=== PATIENT | female | born 1990 | race Caucasian/White ===

== ENCOUNTER 2021-06-15 05:54 | Emergency (ER) | payer BC, SELFPAY ==
[2021-06-15] VITALS (12 sets, daily range): BP systolic 105–130; BP diastolic 74–90; PULSE 73–95; RESP 11–19; TEMP 36.3; O2SAT 98–100
[2021-06-15 06:32] LABS: Basophils Percent Auto 0.3 % (0.2-1.2); Eosinophils Absolute Auto 0.1 K/mm3 (0-0.3); Eosinophils Percent Auto 0.6 % (0-4.4); Hematocrit 41.8 % (37.0-47.0); Hemoglobin 14.2 g/dL (12.0-15.0); Immature Granulocyte Absolute 0.03 K/mm3 (0.00-0.031); Immature Granulocyte Percent A 0.3 % (0-0.5); Lymphocytes Absolute Auto 0.59 K/mm3 (0.9-3.2); Lymphocytes Percent Auto 5.7 % (18.3-44.2); Mean Corpuscular Hemoglobin 30.2 pg (26-34); Mean Corpuscular Volume 88.9 fl (80-100); Mean Platelet Volume 9.7 fl (7.4-10.4); Monocytes Absolute Auto 0.4 K/mm3 (0.1-0.6); Monocytes Percent Auto 3.9 % (2.6-8.5); Neutrophils Absolute Auto 9.3 K/mm3 (1.3-6.7); Neutrophils Percent Auto 89.2 % (45.5-73.1); Platelet Count Result 317 k/mm3 (150-375); Red Cell Distribution Width 12.4 % (11.5-14.5); White Blood Count 10.4 K/mm3 (4.5-10.0)
[2021-06-15 06:41] LABS: Alanine Aminotransferase 41 U/L (4-35); Albumin Level 5.3 g/dL (3.5-5.1); Alkaline Phosphatase 122 U/L (38-126); Anion Gap 13 mmol/L (8-16); Aspartate Amino Transferase 57 U/L (14-36); Bilirubin,Total 0.7 mg/dL (0.2-1.3); Blood Urea Nitrogen 12 mg/dL (7-17); Calcium 9.8 mg/dL (8.4-10.2); Carbon Dioxide 24 mmol/L (22-30); Chloride 103 mmol/L (98-107); Estimated CRCL calculation 119 ml/min; Estimated Glomerular Filt Rate > 60; Glucose 108 mg/dL (65-110); Lipase 137 U/L (23-300); Sodium 140 mmol/L (137-145)
[2021-06-15 06:46] LABS: Add Urine Microscopic? YES; Appearance Urine Clear (Clear); Bacteria Urine Trace /hpf; Bilirubin Urine Negative (Negative); Blood Urine Negative (Negative); Color Urine Yellow (Yellow); Glucose Urine UA Negative (Negative); Ketones Urine 2+ mg/dL (Negative); Leukocyte Esterase Ur Negative LEU/UL (Negative); Mucus Urine Rare /lpf; Nitrate Urine Negative (Negative); Protein Urine 1+ mg/dL (Negative); RBC Urine 0-2 /hpf (0-2); Specific Grav Ur 1.021 (1.001-1.035); Squamous Epithelial Cell Urine Many /hpf (Few); Urobilinogen Urine Negative mg/dL (<2.0); WBC Urine 0-3 /hpf
--- NOTE | 2021-06-15 06:50 | ED.GENADULT ---
HPI - General Adult General Chief complaint: Nausea/Vomiting/Diarrhea <Tyler Samuels MD - Last Filed: 06/15/21 06:52> Stated complaint: n/v <Tyler Samuels MD - Last Filed: 06/15/21 06:52> Time Seen by Provider: 06/15/21 07:24 <Tyler Samuels MD - Last Filed: 06/15/21 06:52> History of Present Illness HPI narrative: Patient 30-year-old female who presents the emergency department with chief complaint of nausea vomiting and diarrhea. Patient reports that her daughter was sick with a stomach flu and has had multiple bouts of nausea vomiting and diarrhea. The patient reports been unable to keep fluids down states she feels extremely lightheaded and reports that she feels dehydrated. Patient states she has a little bit of a cramping-like sensation in her abdomen but denies localizing pain. <Tyler Samuels MD - Last Filed: 06/15/21 06:52> Related Data Home medications: Home Medications Medication Instructions Recorded Confirmed PNV cmb#95-ferrous fumarate-FA 1 tablet PO DAILY 05/23/19 06/18/19 [] ferrous sulfate 140 mg PO ONCE 05/23/19 06/18/19 <Tyler Samuels MD - Last Filed: 06/15/21 06:52> Allergies/adverse reactions: Allergies Allergy/AdvReac Type Severity Reaction Status Date / Time No Known Allergies Allergy Verified 05/23/19 12:40 <Tyler Samuels MD - Last Filed: 06/15/21 06:52> Review of Systems Review of Systems: A 10 system review of systems was completed on the patient and is negative except for what is stated in the HPI. Nursing and ancillary documentation was reviewed. <Tyler Samuels MD - Last Filed: 06/15/21 06:52> PMFSH Past Medical History Medical History: Medical History Anemia <Tyler Samuels MD - Last Filed: 06/15/21 06:52> Family History Family History: Family History Grandparent Heart disease Diabetes mellitus Hypertension Mother Melanoma Hypertension Father Hypertension <Tyler Samuels MD - Last Filed: 06/15/21 06:52> Social History Social History: Social History Smoking status: Never smoker Substance use: never Spiritual care concerns: No <Tyler Samuels MD - Last Filed: 06/15/21 06:52> Exam Narrative: GENERAL: Well-appearing, well-nourished, and in no acute distress. HEAD: Normocephalic, atraumatic. EYES: PERRLA and EOMI. ENT: Nares clear, no rhinorrhea or epistaxis. Mucous membranes moist. NECK: Supple. CHEST: Clear to auscultation. No respiratory distress. HEART: Regular rate and rhythm. No murmur heard. Normal peripheral pulses. ABDOMEN: Soft, nontender, nondistended, normal active bowel sounds. EXTREMITIES: Normal range of motion. No edema. SKIN: Warm, dry, no rash. NEURO: No focal deficits. Alert and oriented x3. PSYCH: Normal mood and affect. <Tyler Samuels MD - Last Filed: 06/15/21 06:52> Course Vital Signs Vital signs: Vital Signs Temperature 36.3 C L 06/15/21 06:00 Pulse Rate 73 06/15/21 06:00 Respiratory Rate 18 06/15/21 06:00 Blood Pressure 130/82 06/15/21 06:00 Pulse Oximetry 98 06/15/21 06:00 Temperature 36.3 C L 06/15/21 06:00 Pulse Rate 89 06/15/21 07:27 Respiratory Rate 19 06/15/21 07:02 Blood Pressure 107/85 06/15/21 07:27 Pulse Oximetry 100 06/15/21 07:02 <Tyler Samuels MD - Last Filed: 06/15/21 06:52> Vital Signs Temperature 36.3 C L 06/15/21 06:00 Pulse Rate 73 06/15/21 06:00 Respiratory Rate 18 06/15/21 06:00 Blood Pressure 130/82 06/15/21 06:00 Pulse Oximetry 98 06/15/21 06:00 Temperature 36.3 C L 06/15/21 06:00 Pulse Rate 89 06/15/21 07:27 Respiratory Rate 19 06/15/21 07:0
[2021-06-15] MEDS: SODIUM CHLORIDE 0.9% IV 1,000 ML 999 ML IV CONT (06:53)
[2021-06-15] MEDS: ONDANSETRON INJ 4 MG/2 ML VIAL IV PUSH (06:53)
[2021-06-15] MEDS: DICYCLOMINE HCL INJ 20 MG/2 ML VIAL IM (06:53)
--- NOTE | 2021-06-15 07:22 | PC.NURSE ---
Assumed care of pt. at this time. Report from PORFIRIO Colón
== END 2021-06-15 08:10 | disposition home or self-care (01) ==
PROVIDERS: Emergency Medicine; Emergency Provider Emergency Medicine
DX: K52.9 Noninfective gastroenteritis and colitis, unspecified (principal); Z86.2 Personal history of diseases of the blood and blood-forming organs and certain disorders involving the immune mechanism
CPT/HCPCS: 36415; 80053; 81001; 81025; 83690; 85025; 96361; 96372; 96374; 99284; J0500; J2405; J7030

== ENCOUNTER 2022-07-22 10:20 | Emergency (ER) | payer OTHER, SELFPAY ==
--- NOTE | ~2022-07-22 | XR_ITS ---
XR ankle RT min 3V, XR foot RT min 3V 07/22/2022 10:51 (accession [id number]), 07/22/2022 10:52 (accession [id number]) Indication: Right ankle and foot pain after twisting injury Procedure: 4 views right ankle 4 views right foot Comparison: No prior studies for comparison. Findings: Ankle mortise is intact. There is a transverse nondisplaced fracture proximal aspect of the fifth metatarsal. Mild talonavicular osteoarthritis. Ankle mortise intact. Talar dome is normal. Impression: 1: Nondisplaced transverse fracture proximal aspect of the fifth metatarsal. Reviewed, dictated and finalized at location A. MAKER Impression: 1: Nondisplaced transverse fracture proximal aspect of the fifth metatarsal. Impression: 1: Nondisplaced transverse fracture proximal aspect of the fifth metatarsal.
--- NOTE | 2022-07-22 10:21 | ED.LOWEXIN ---
HPI - Extremity Injury (Lower) General Stated Complaint: rt foot inury Time Seen by Provider: 07/22/22 10:21 Source: patient Mode of arrival: ambulatory Limitations: no limitations History of Present Illness HPI Narrative: Janet is a 31-year-old female patient presenting to the clinic today with complaints of right foot/ankle injury. She reports that she twisted her right ankle/foot last night when leaving a friend's house. She has pain over the lateral dorsal proximal foot and the lateral ankle with mild swelling. Is having severe pain with ambulation Related Data Home Medications Medication Instructions Recorded Confirmed No Home Medications 07/22/22 07/22/22 Allergies Allergy/AdvReac Type Severity Reaction Status Date / Time No Known Allergies Allergy Verified 07/22/22 10:41 Review of Systems Review of Systems: Pertinent positives per HPI. Patient denies any fever, chills, rash, headache, visual changes, dizziness, cough, runny nose, sore throat, shortness of breath, chest pain, palpitations, nausea, vomiting, diarrhea, constipation, abdominal pain, or any urinary issues. PMFSH Past Medical History Medical History Anemia Family History Family History Grandparent Heart disease Diabetes mellitus Hypertension Mother Melanoma Hypertension Father Hypertension Social History Social History Smoking status: Never smoker Substance use: never Spiritual care concerns: No Comments At the time of my signature, I reviewed and agree with the nursing past medical, surgical, social, and family history. There is no relevant family history pertinent to the patient complaint. Exam Narrative: General: Well-developed, well nourished, in no apparent distress Head: Normocephalic, atraumatic. Cardio: Regular rate and rhythm, s1 and s2 normal, no murmur appreciated. Resp: Clear to auscultation bilaterally, no rhonchi, rales, wheezing or rubs. Musculoskeletal: No deformity, mild swelling noted over the lateral dorsal proximal foot and the lateral ankle-tender to palpation over the base of the 5th metatarsal and lateral ankle, mild pain with valgus varus testing of the right ankle, limited range of motion of the 5th metatarsal and the ankle due to pain, pain with dorsal flexion against resistance, muscle strength strong and equal, peripheral pulse strong, no cyanosis, normal gait and station Course Course Emergency Course: Portions of this record may have been created with voice recognition software. Level of Care: Express Care Visit Vital Signs Vital signs: Vital signs reviewed MDM - Extremity Injury (Lower) MDM Narrative Medical decision making narrative: At the time of visit patient is resting comfortably on the exam table. X-ray was performed of the right foot/ankle. X-ray shows a right 5th metatarsal transverse nondisplaced fracture. X-ray of the ankle is normal. Postop shoe, ice pack,and crutches were given to the patient. Supportive measures were discussed with the patient she voiced understanding discharge instructions and agrees to treatment plan. Referral was given to the see Dr. Loera Differential Diagnosis Differential diagnosis: Likely ankle sprain and strain, ankle fracture and other (Foot sprain, foot fracture) Imaging Data Radiologist's impression: [place] [address] XRay Report Signed Patient: Candie Liz : 1990 MR#: [id number] Age/Sex: 31 / F Acct:[id number] Loc: [facility]? ? ADM Date: 07/22/22Attending Dr: Ordering Physician: Aime Moses APRN Date of Service: 07/22/22 Procedure(s): XR ankle RT min 3V; XR foot RT min 3V Accession Number(s): [id number]; [id number] cc
[2022-07-22 10:37] VITALS: BP 116/73; PULSE 66; RESP 18; TEMP 36.6; O2SAT 99
== END 2022-07-22 11:30 | disposition home or self-care (01) ==
PROVIDERS: Emergency Provider Nurse Practitioner Family
DX: S93.411A Sprain of calcaneofibular ligament of right ankle, initial encounter (principal); S93.601A Unspecified sprain of right foot, initial encounter; S92.354A Nondisplaced fracture of fifth metatarsal bone, right foot, initial encounter for closed fracture; X50.9XXA Other and unspecified overexertion or strenuous movements or postures, initial encounter
CPT/HCPCS: 73610; 73630; 99213; G0463

== ENCOUNTER 2023-03-08 15:16 | Outpatient (CLI) | payer OTHER, SELFPAY ==
--- NOTE | ~2023-03-08 | US_ITS ---
EXAMINATION: US breast LT limited HISTORY: Palpable lump in the upper outer quadrant/axilla on the left TECHNIQUE: Limited left breast/axillary ultrasound is performed in the area of clinical concern. FINDINGS: There is a 5 mm x 3 mm oval, circumscribed, parallel, hypoechoic mass with internal vascula rity in the region of the left axilla corresponding to the palpable abnormality of concern. IMPRESSION: Indeterminate mass corresponding to the palpable abnormality of concern. Recommend diagnostic mammogr am to evaluate for any identifiable etiology in the breast. BI-RADS Category 0: Incomplete: Needs additional imaging evaluation. Reviewed, dictated and finalized at location A. IMPRESSION: Indeterminate mass corresponding to the palpable abnormality of concern. Recomm end diagnostic mammogram to evaluate for any identifiable etiology in the breas t. BI-RADS Category 0: Incomplete: Needs additional imaging evaluation.
== END 2023-03-08 15:17 | disposition home or self-care (01) ==
PROVIDERS: Visit Provider Obstetrics & Gynecology
DX: N63.20 Unspecified lump in the left breast, unspecified quadrant (principal)
CPT/HCPCS: 76642

== ENCOUNTER 2023-03-18 08:01 | Emergency (ER) | payer OTHER, SELFPAY ==
[2023-03-18 08:11] VITALS: BP 126/65; PULSE 76; RESP 16; TEMP 36.2; O2SAT 100
--- NOTE | 2023-03-18 08:12 | ED.URI ---
HPI - URI/Sore Throat General Chief Complaint: Upper Respiratory Infection Stated Complaint: sorethroat Time Seen by Provider: 03/18/23 08:16 Source: patient, RN notes reviewed and old records reviewed Mode of arrival: ambulatory Limitations: no limitations History of Present Illness HPI Narrative: 32year old female who presents to [facility] care with complaints of sore throat,cough, and some ear pressure, and hoarseness for the past 3 days. Patient reports that she had 101F fever yesterday and checked her temperature this morning with reading 99.1F. Patient reports that she has taken Ibuprofen and also cough drops for her symptoms. Patient reports that she has had no known ill contacts. MD elicited complaint: sore throat Onset (ago): day(s) (3) Severity: moderate Able to tolerate fluids by mouth: Yes Exacerbating factors: swallowing Associated symptoms: fever, sore throat, cough, ear pain (pressure) and other (hoarseness) Treatments prior to arrival: ibuprofen and other (cough drops) Related Data Allergies Allergy/AdvReac Type Severity Reaction Status Date / Time No Known Allergies Allergy Verified 03/18/23 08:13 Review of Systems Review of Systems: CONSTITUTIONAL: Reports malaise, chills, sweats, or fever. EYES: Denies visual changes, redness, or discharge. ENT: Reports mild rhinorrhea, congestion,no sinus pain, some otalgia, positive for sore throat. CARDIOVASCULAR: Denies chest pain, palpitations, or edema. RESPIRATORY: Reports cough.? Denies dyspnea. GASTROINTESTINAL: Denies abdominal pain, nausea, vomiting, diarrhea SKIN: Denies rash or itching. MUSCULOSKELETAL: Denies myalgia. NEUROLOGIC: Denies headache. All systems reviewed & are unremarkable except as noted in HPI and below PMFSH Past Medical History Medical History Anemia Foot fracture, right Surgical History Surgical History H/O: Family History Family History Grandparent Heart disease Diabetes mellitus Hypertension Mother Melanoma Hypertension Father Hypertension Social History Social History Smoking status: Never smoker Substance use: never Lack of Transportation: No Lack of Food: Never True Current Housing: I Have Housing Concerned About Future Housing: No Difficulty Paying Gas/Electric Bills: No Difficulty Paying for Meds: No Education: Associate Degree Difficulty w/ Childcare or Family Care: No Spiritual care concerns: No Comments At time of signature, agree with nursing past medical, surgical, social and family history. There is no relevant family history pertinent to the presenting complaint Exam Narrative: GENERAL: Well-appearing, well-nourished, and in no acute distress. HEAD: Normocephalic EYES: PERRLA, conjunctivae clear ENT: Nares clear, turbinates edematous and erythematous, clear discharge. Mucous membranes moist. TM pearly kebede with dull light reflex bilaterally; no tragal tenderness. Oropharynx erythematous without lesions. Tonsils red and enlarged and without exudate, no drooling, positive for hoarseness, no trismus, uvula midline. NECK: Supple. Left lymphadenopathy CHEST: Clear to auscultation, breath sounds equal. No wheezing, rhonchi, rales, or stridor. No respiratory distress, speaks in full sentences.occasional cough,SAO2 100% on room air HEART: Regular rate and rhythm. No murmur heard. SKIN: Warm, dry, no rash. NEURO: Alert and oriented x3. PSYCH: Normal mood and affect Course Course Emergency Course: Patient is aware of diagnosis, understands and agrees to treatment plan.? Anticipatory guidance given.? Patient agrees to follow-up as directed and is aware of reasons to seek care at the emergency department. Portions of t
== END 2023-03-18 08:34 | disposition home or self-care (01) ==
PROVIDERS: Emergency Provider Registered Nurse
DX: J02.0 Streptococcal pharyngitis (principal)
CPT/HCPCS: 87880; 99213; G0463

== ENCOUNTER 2023-04-05 12:10 | Outpatient (CLI) | payer OTHER, SELFPAY ==
--- NOTE | ~2023-04-05 | MM_ITS ---
EXAMINATION: MM diagnostic oscar BI w shola HISTORY: Palpable lump of the left axilla. TECHNIQUE: Craniocaudal, mediolateral, and mediolateral oblique 3-D tomosynthesis images of the breas ts were performed and synthetic 2-D images were generated. CAD analysis was submitted and interpreted . COMPARISON: None, baseline BREAST PARENCHYMAL COMPOSITION: The breasts are heterogeneously dense, which may obscure small masses . FINDINGS: No suspicious mass, calcification, or architectural distortion are identified in either jo ast to suggest malignancy. No mammographic etiology is identified for the palpable left axillary lump . IMPRESSION: 1. No mammographic cor etiology identified for the patient's palpable left axillary lump. Ultrasound- guided biopsy of the palpable lump is recommended. 2. Recommend routine screening mammography beginning at age 40. BI-RADS Category 1: Negative Reviewed, dictated and finalized at location A. [employer]ICE MA[employer]GER IMPRESSION: 1. No mammographic cor etiology identified for the patient's palpable left axil more lump. Ultrasound-guided biopsy of the palpable lump is recommended. 2. Recommend routine screening mammography beginning at age 40. BI-RADS Category 1: Negative
== END 2023-04-05 12:11 | disposition home or self-care (01) ==
PROVIDERS: PCP Obstetrics & Gynecology; Referring Provider Obstetrics & Gynecology; Visit Provider Obstetrics & Gynecology
DX: N63.20 Unspecified lump in the left breast, unspecified quadrant (principal)
CPT/HCPCS: 77062; 77066; G0279

== ENCOUNTER → 2023-05-02 09:44 | Outpatient (REF) | payer OTHER, SELFPAY | LOC: ANHLAB 09:44 | PROVIDERS: PCP Obstetrics & Gynecology; Visit Provider Surgery | DX: N63.20 Unspecified lump in the left breast, unspecified quadrant (principal) | CPT/HCPCS: 88305 ==

== ENCOUNTER 2024-05-07 11:45 | Emergency (ER) | payer OTHER, SELFPAY ==
[2024-05-07 11:46] VITALS: BP 129/92; PULSE 91; RESP 20; TEMP 36.4; O2SAT 100
[2024-05-07 12:23] VITALS: BP 123/80
[2024-05-07 12:36] VITALS: BP 134/81; BP 137/81; PULSE 68; PULSE 93; RESP 15; RESP 16; TEMP 36.4; O2SAT 100
--- NOTE | 2024-05-07 12:59 | ED_ITS ---
HPI - General Adult General Chief complaint: Dizziness Stated complaint: HTN Time Seen by Provider: 05/07/24 12:41 History of Present Illness HPI narrative: 33-year-old female present to the emergency department for evaluation for elevated blood pressure. Patient is approximately 26 weeks and patient follows up with Dr. Galvez. Patient states that she had some increased fatigue and her eyes felt sore today so she checked her blood pressure at work and was found to have a blood pressure of 150 systolic. Upon arrival emergency department patient's blood pressure was 129/92. Patient states her symptoms have improved. Patient states she has had some intermittent right-sided abdominal cramping but denies any feeling of contractions, vaginal bleeding or vaginal discharge. Patient reports that her typical blood pressure is in the 120 range. Related Data Home Medications Medication Instructions Recorded Confirmed No Home Medications 05/09/23 05/09/23 Allergies Allergy/AdvReac Type Severity Reaction Status Date / Time No Known Allergies Allergy Verified 05/09/23 08:17 Review of Systems Review of Systems: All systems reviewed & are unremarkable except as noted in HPI and below PMFSH Past Medical History Medical History Anemia Foot fracture, right Surgical History Surgical History H/O: Family History Family History (Updated 05/02/23 @ 08:33 by Marisol Espinosa CMA) Grandparent Heart disease Diabetes mellitus Hypertension Depression Mother Melanoma Hypertension Father Hypertension Alcoholism Depression Heart disease Social History Social History (Updated 05/02/23 @ 08:40 by Marisol Espinosa CMA) Smoking status: Former smoker Alcohol intake: current Substance use: never Substance use type: does not use Lack of Transportation: No Lack of Food: Never True Current Housing: I Have Housing Concerned About Future Housing: No Difficulty Paying Gas/Electric Bills: No Difficulty Paying for Meds: No Education: Associate Degree Difficulty w/ Childcare or Family Care: No Spiritual care concerns: No Exam Narrative: APPEARANCE: Well appearing, no pain, no distress, well-nourished. HEAD: normocephalic, atraumatic. EYES: PERRLA/EOMI, conjunctivae clear. NOSE: Normal no drainage EARS:TMS clear with good light reflex. THROAT: Pharynx clear, no exudate. NECK: Supple. No adenopathy, no masses. RESPIRATORY: Airway patent, respirations nonlabored. Clear to auscultation bilaterally, no rales, rhonchi, wheezing. CARDIOVASCULAR: Regular rate and rhythm without murmurs rubs or gallops. ABDOMINAL: Soft, nontender, nondistended, normal bowel sounds MUSCULOSKELETAL: Moves all extremities. Strength/ROM intact, No edema, No calf tenderness. NEURO: Alert. Cranial nerves II through XII intact. Grossly intact SKIN: Warm, dry. Normal Color Course Course Emergency Course: Patient was updated on the results of the workup she is comfortable the plan for discharge and follow-up with OB Gyne Vital Signs Vital signs: Vital Signs Temperature 97.5 F L 05/07/24 11:46 Pulse Rate 91 05/07/24 11:46 Respiratory Rate 20 05/07/24 11:46 Blood Pressure 129/92 H 05/07/24 11:46 Pulse Oximetry 100 05/07/24 11:46 Oxygen Delivery Room Air 05/07/24 11:46 Temperature 97.6 F 05/07/24 12:36 Pulse Rate 68 05/07/24 15:10 Respiratory Rate 16 05/07/24 15:10 Blood Pressure 122/76 05/07/24 15:10 Pulse Oximetry 98 05/07/24 15:10 Oxygen Delivery Room Air 05/07/24 11:46 Medical Decision Making [facility] Narrative Medical decision making narrative: 33-year-old female it is 26 weeks presents emergency department for evaluation for elevated blood pressure. Patient's current blood pressure is 124/89. Patient is afebrile with no leukocytosis and hemoglobin of 11.2. INR 0.9, patient's creatinine is 0.4, patient has normal lactic acid normal liver function, patient does not have an elevated LDH and patient has no protein in her urine. Patient was updated on the results of her workup. Case was discussed with Dr. Galvez-Dr. Stratton comfortable the plan for discharge and close follow-up. All questions concerns were addressed. Patient's blood pressure was significantly improved at time of discharge. Differential Diagnosis Differential Diagnosis: UTI, preeclampsia, hypertension Vital Signs Vital Signs: Vital Signs Temperature 97.5 F L 05/07/24 11:46 Pulse Rate 91 05/07/24 11:46 Respiratory Rate 20 05/07/24 11:46 Blood Pressure 129/92 H 05/07/24 11:46 Pulse Oximetry 100 05/07/24 11:46 Oxygen Delivery Room Air 05/07/24 11:46 Temperature 97.6 F 05/07/24 12:36 Pulse Rate 68 05/07/24 15:10 Respiratory Rate 16 05/07/24 15:10 Blood Pressure 122/76 05/07/24 15:10 Pulse Oximetry 98 05/07/24 15:10 Oxygen Delivery Room Air 05/07/24 11:46 Lab Data 05/07/24 13:03 05/07/24 13:03 Labs: Lab Results 05/07/24 Range/Units 13:03 WBC 9.5 (4.5-10.0) K/mm3 RBC 3.75 L (4.2-5.4) M/mm3 Hgb 11.2 L D (12.0-15.0) g/dL Hct 33.3 L (37.0-47.0) % MCV 88.8 (80-100) fl MCH 29.9 (26-34) pg MCHC 33.6 (32-36) g/dl RDW 12.3 (11.5-14.5) % Plt Count 241 (150-375) k/mm3 MPV 9.6 (7.4-10.4) fl Immature Gran % (Auto) 0.4 (0-0.5) % Neut % (Auto) 77.2 H (45.5-73.1) % Lymph % (Auto) 17.5 L (18.3-44.2) % [place] % (Auto) 4.3 (2.6-8.5) % Eos % (Auto) 0.4 (0-4.4) % Baso % (Auto) 0.2 (0.2-1.2) % Lymph # (Auto) 1.66 (0.9-3.2) K/mm3 [place] # (Auto) 0.4 (0.1-0.6) K/mm3 Eos # (Auto) 0.0 (0-0.3) K/mm3 Baso # (Auto) 0.0 (0.0-0.1) K/mm3 Abs Immat Gran (auto) 0.04 H (0.00-0.031) K/mm3 Absolute Neuts (auto) 7.3 H (1.3-6.7) K/mm3 Absolute Nucleated RBC 0.000 (0.0-0.012) K/mm3 Nucleated RBC % 0.0 (0.0-0.2) % PT 12.9 (11.1-14.7) Seconds INR 0.9 APTT 27.9 (22.3-36.8) Seconds Sodium 134 L (137-145) mmol/L Potassium 3.8 (3.4-5.0) mmol/L Chloride 104 (98-107) mmol/L Carbon Dioxide 25 (22-30) mmol/L Anion Gap 5 (4-12) mmol/L BUN 8 (7-17) mg/dL Creatinine 0.40 L (0.7-1.0) mg/dL Estim Creat Clear Calc 181 ml/min Estimated GFR > 60 (59 - ) Glucose 90 (65-110) mg/dL Lactic Acid 1.0 (0.7-2.0) mmol/L Calcium 9.0 (8.4-10.2) mg/dL Total Bilirubin 0.4 (0.2-1.3) mg/dL AST 20 (14-36) U/L ALT 14 (6-35) U/L Alkaline Phosphatase 114 (38-126) U/L Lactate Dehydrogenase 146 (120-246) U/L Total Protein 7.0 (6.3-8.2) g/dL Albumin 3.7 (3.5-5.1) g/dL Urine Color Yellow (Yellow) Urine Appearance Clear (Clear) Urine pH 7.0 (5.0-9.0) Ur Specific [place] 1.005 (1.001-1.035) Urine Protein Negative (Negative) mg/dL Urine Glucose (UA) Negative (Negative) mg/dL Urine Ketones Negative (Negative) mg/dL Ur Blood (Man) Negative (Negative) Urine Nitrate Negative (Negative) Urine Bilirubin Negative (Negative) Urine Urobilinogen 0.2 (<2.0) mg/dL Leukocyte Esterase Rfl Negative (Negative) SHAQ/UL Discharge Plan Discharge Clinical Impression: Hypertension affecting Patient Disposition: Home, Self-Care Condition: Stable Instructions: Antibiotic Form, Hypertension (ED) Additional Instructions: Have close follow-up with OB Gyne. Follow a low-sodium diet, drink plenty of water. If you have any worsening symptoms then please call or return to the emergency department. Prescriptions: No Action No Home Medications Follow-up/Referrals: Mynor Chauhan MD [Primary Care Provider] -
[2024-05-07 13:00] VITALS: BP 124/89; PULSE 62; RESP 16
[2024-05-07 13:10] LABS: Basophils Percent Auto 0.2 % (0.2-1.2); Eosinophils Percent Auto 0.4 % (0-4.4); Hematocrit 33.3 % (37.0-47.0); Hemoglobin 11.2 g/dL (12.0-15.0); Immature Granulocyte Absolute 0.04 K/mm3 (0.00-0.031); Immature Granulocyte Percent A 0.4 % (0-0.5); Lymphocytes Absolute Auto 1.66 K/mm3 (0.9-3.2); Lymphocytes Percent Auto 17.5 % (18.3-44.2); Mean Corpuscular HGB Conc 33.6 g/dl (32-36); Mean Corpuscular Hemoglobin 29.9 pg (26-34); Mean Corpuscular Volume 88.8 fl (80-100); Mean Platelet Volume 9.6 fl (7.4-10.4); Monocytes Absolute Auto 0.4 K/mm3 (0.1-0.6); Monocytes Percent Auto 4.3 % (2.6-8.5); Neutrophils Absolute Auto 7.3 K/mm3 (1.3-6.7); Neutrophils Percent Auto 77.2 % (45.5-73.1); Platelet Count Result 241 k/mm3 (150-375); Red Blood Count 3.75 M/mm3 (4.2-5.4); Red Cell Distribution Width 12.3 % (11.5-14.5); White Blood Count 9.5 K/mm3 (4.5-10.0)
[2024-05-07 13:11] LABS: Add Urine Microscopic? NO; Appearance Urine Clear (Clear); Bilirubin Urine Negative (Negative); Blood Urine Negative (Negative); Color Urine Yellow (Yellow); Glucose Urine UA Negative (Negative); Ketones Urine Negative (Negative); Leukocyte Esterase Ur Negative LEU/UL (Negative); Nitrate Urine Negative (Negative); Protein Urine Negative (Negative); Specific Grav Ur 1.005 (1.001-1.035); Urobilinogen Urine 0.2 mg/dL (<2.0)
[2024-05-07] MEDS: SODIUM CHLORIDE 0.9% IV 500 ML 999 ML IV CONT (13:11)
[2024-05-07 13:19] LABS: Lactate Dehydrogenase 146 U/L (120-246)
[2024-05-07 13:21] LABS: Alanine Aminotransferase 14 U/L (6-35); Albumin Level 3.7 g/dL (3.5-5.1); Alkaline Phosphatase 114 U/L (38-126); Anion Gap 5 mmol/L (4-12); Aspartate Amino Transferase 20 U/L (14-36); Bilirubin,Total 0.4 mg/dL (0.2-1.3); Blood Urea Nitrogen 8 mg/dL (7-17); Carbon Dioxide 25 mmol/L (22-30); Chloride 104 mmol/L (98-107); Estimated CRCL calculation 181 ml/min; Estimated Glomerular Filt Rate > 60; Glucose 90 mg/dL (65-110); Potassium 3.8 mmol/L (3.4-5.0); Sodium 134 mmol/L (137-145)
[2024-05-07 13:27] LABS: INR 0.9; Prothrombin Time 12.9 Seconds (11.1-14.7)
[2024-05-07 13:28] LABS: Partial Thromboplastin Time 27.9 Seconds (22.3-36.8)
[2024-05-07 13:31] VITALS: BP 119/77; PULSE 76; RESP 18; O2SAT 98
[2024-05-07 15:10] VITALS: BP 122/76; PULSE 68; RESP 16; O2SAT 98
== END 2024-05-07 15:11 | disposition home or self-care (01) ==
PROVIDERS: Emergency Provider Emergency Medicine; PCP Obstetrics & Gynecology
DX: O16.2 Unspecified maternal hypertension, second trimester (principal); Z3A.26 26 weeks gestation of pregnancy
CPT/HCPCS: 36415; 80053; 81003; 83605; 83615; 85025; 85610; 85730; 96360; 99283; J7040

== ENCOUNTER 2024-07-14 13:46 | Outpatient (CLI) | payer OTHER, SELFPAY ==
[2024-07-14 14:19] VITALS: BP 116/86; PULSE 112
[2024-07-14 14:25] LABS: Basophils Percent Auto 0.1 % (0.2-1.2); Eosinophils Percent Auto 0.3 % (0-4.4); Hematocrit 32.8 % (37.0-47.0); Hemoglobin 10.7 g/dL (12.0-15.0); Immature Granulocyte Absolute 0.05 K/mm3 (0.00-0.031); Immature Granulocyte Percent A 0.5 % (0-0.5); Lymphocytes Absolute Auto 1.43 K/mm3 (0.9-3.2); Lymphocytes Percent Auto 15.1 % (18.3-44.2); Mean Corpuscular HGB Conc 32.6 g/dl (32-36); Mean Corpuscular Hemoglobin 27.4 pg (26-34); Mean Corpuscular Volume 84.1 fl (80-100); Mean Platelet Volume 10.3 fl (7.4-10.4); Monocytes Absolute Auto 0.3 K/mm3 (0.1-0.6); Monocytes Percent Auto 3.5 % (2.6-8.5); Neutrophils Absolute Auto 7.6 K/mm3 (1.3-6.7); Neutrophils Percent Auto 80.5 % (45.5-73.1); Platelet Count Result 258 k/mm3 (150-375); White Blood Count 9.5 K/mm3 (4.5-10.0)
[2024-07-14 14:31] VITALS: BP 119/76; PULSE 92
[2024-07-14 14:37] LABS: Alanine Aminotransferase 15 U/L (6-35); Albumin Level 3.5 g/dL (3.5-5.1); Alkaline Phosphatase 146 U/L (38-126); Anion Gap 10 mmol/L (4-12); Aspartate Amino Transferase 18 U/L (14-36); Bilirubin,Total 0.4 mg/dL (0.2-1.3); Blood Urea Nitrogen 10 mg/dL (7-17); Carbon Dioxide 21 mmol/L (22-30); Chloride 103 mmol/L (98-107); Estimated Glomerular Filt Rate > 60; Glucose 114 mg/dL (65-110); Potassium 3.5 mmol/L (3.4-5.0); Sodium 134 mmol/L (137-145); Uric Acid 3.8 mg/dL (2.5-7.5)
[2024-07-14 14:41] LABS: Creatinine Urine 102.3 mg/dL; Total Protein Urine Random 19 mg/dL; Ur Ttl Prot Creatinine Ratio 0.19 mg/mg (0-0.20)
--- OUTSIDE RECORDS SUMMARY | 2024-07-14 14:45 | XMS_ITS | Data Portability ---
Author Organization [facility] [place] Address [address] [place] [address] Assessment Encounter Date Assessment Date Assessment LastModified by Organization Details LastModified Time 06/26/2024 06/26/2024 Patient is ___weeks . Discussed plan. [email or web address] Not available 06/26/2024 12:40:59 Plan of Treatment Reminders Order Date Submit Date Provider Last Modified By Organization Details Last Modified Time Details Appointments OB ROUTINE 2024 08:45A Ben BAIN MD Not available Not available Not available NST 2024 11:00A M NST SCHEDULE Not available Not available Not available U/S OB BPP 2024 11:30A M ULTRASOUND Not available Not available Not available OB ROUTINE 2024 11:45A Ben GALVEZ MD Not available Not available Not available OB ROUTINE 2024 04:15P Ben GALVEZ MD Not available Not available Not available U/S OB BPP 2024 09:00A M ULTRASOUND Not available Not available Not available NST 2024 09:30A M NST SCHEDULE Not available Not available Not available SURG CSectio n 2024 07:30A Ben GALVEZ MD Not available Not available Not available Lab None recorde d. Referral None recorde d. Procedures None recorde d. Surgeries None recorde d. Imaging US, obstetr ic, follow- up 2024 025 [email or web address] [place], [address], [address], [place], [address], 06/26/2024 18:12:07 Medication Orders None recorde d. Patient TargetsNo targets recorded. Patient InstructionsNo instructions recorded. Reason for Referral None Reported. Results Created Date Observation Date Name Description Value Unit Range Abnormal Flag Note LastModifiedBy Organization Detail LastModifiedTime 06/26/19 25 06/26/2024 US, obste tric, follo w-up No observ ation record ed. [email or web address] [address], [place], [address], 06/27/2024 20:57:02 06/26/19 25 06/26/2024 US, obste tric, follo w-up No observ ation record ed. [email or web address] [address], [place], [address], 06/26/2024 17:53:31 Result Notes None recorded. Problems Name Problem SNOMED Code Status Onset Date Resolution Date Notes Provider Name and Address Organization Details Recorded Time Pregnanc y 11621853 Active 2023 Roseanne Marcelo [facility], [facility] 4 17:24:41 Obese class II 68931803502 4105 Active 37wk testing Wes Dewitt [facility] 4 15:46:46 Deliveri es by 281846070 Active RCS RAYMOND BAIN MD [address], [place], [address], [facility] 4 18:36:34 Group B Streptoc occus carrier 94794228258 03 [facility] 4 15:44:42 Large for gestatio n age fetus 511995088 Active history of w/ poly, 8#15oz previous preg. repeat US At 32 weeks Jesse Galvez MD [address], [place], [address], [facility] 4 16:36:10 Venous varices 529764343 Active LOWER EXTREMITY Jesse Galvez MD [address], [place], [address], [facility] 5 11:34:29 Marginal insertio n of umbilica l cord 66612079 Active serial growth u/s [facility] 4 12:11:33 Placenta circumva llata 4387446 Active repeat at 32wks [facility] 4 12:11:44 Increase d blood pressure 75426551 Active Had some values at home that were elevated -140/100 Jesse Galvez MD [address], [place], [address], [facility] 5 16:35:14 Problem Notes None recorded. Procedures Surgical History Date Name Laterality Status Provider Name and Address Organization Details Recorded Time 4 Date of Last Pap Smear completed Janene Huddleston [facility] 12/13/2023 09:20:57 0 section completed Carla Brady [facility] 03/08/2023 15:13:50 Imaging Results Imaging Date Name Status LastModified by Organiz ation Details LastModified Time 06/26/2024 US, obstetric, follow-up completed [email or web address] [address], [place], [address], 06/27/2024 20:57:02 06/26/2024 US, obstetric, follow-up completed marshall Paz [address], [place], [address], 06/26/2024 17:53:31 Procedure Notes None recorded. Medical Equipment None Reported. Allergies No known drug allergies Medications Name Sig Start Date Stop Date Status Note LastModified by Organization Details LastModified Time m-dryl/li docaine/a ntacid SWISH AND SPIT 5MLS DIRECTED FOR 3 DAYS 03/08 completed Not Available Not Available Not Available azithromy ari 250 mg tablet TK 2 TS PO ON DAY 1, THEN TK 1 T PO D FOR 4 DAYS 02/16 completed Not Available Not Available Not Available fluconazo le 150 mg tablet TAKE 1 TABLET BY MOUTH EVERY DAY FOR 1 DAY DIRECTED 05/15 completed Not Available Not Available Not Available Loestrin Fe 06/22 (28-Day) 1 mg-20 mcg (21)/75 mg (7) tablet take 1 tablet by oral route every day 06/11 completed Prescrib ed Elsewher e: No Locat ion: [facility] odify By: rima avalos DateTime : 10/24/19 13 10:30:00 AM Not Available Not Available Not Available ondansetr on HCl 4 mg tablet TAKE 1 TABLET BY MOUTH EVERY 4 TO 6 HOURS NEEDED 02/11 completed Not Available Not Available Not Available terconazo le 0.8 % vaginal cream insert 1 applicat orful by vaginal route every day at bedtime for 3 nights 12/12 completed Prescrib ed Elsewher e: No Locat ion: [facility] odify By: deangelo tompkins DateTime : 11/11/19 09:38:36 AM Not Available Not Available Not Available amoxicill in 875 mg tablet TAKE 1 TABLET BY MOUTH EVERY 12 HOURS UNTIL ALL TAKEN 11/28 completed Not Available Not Available Not Available Metrogel Vaginal 0.75 % (37.5 mg/5 gram) insert 1 applicat orful (37.5MG) by vaginal route every day at bedtime 10/23 completed Prescrib ed Elsewher e: No Locat ion: [facility] odify By: keon avalos DateTime : 10/30/19 12 11:49:02 AM Not Available Not Available Not Available metoclopr amide 5 mg tablet TAKE 1 TABLET BY MOUTH FOUR TIMES DAILY NEEDED active Not Available Not Available No t Available cephalexi n 500 mg capsule TAKE 1 CAPSULE BY MOUTH TWICE DAILY FOR 5 DAYS DIRECTED 03/02 completed Not Available Not Available Not Available Cipro 500 mg tablet take 1 tablet (500MG) by oral route every 12 hours 10/22 completed Prescrib ed Elsewher e: No Locat ion: [facility] odify By: [email or web address] Encount er DateTime : 02/20/20 11 02:56:36 PM Not Available Not Available Not Available Flagyl 375 mg capsule 02/16 completed Not Available Not Available Not Available Temovate 0.05 % topical ointment apply by topical route 2 times every day a thin layer to the affected area(s) 06/25 completed Prescrib ed Elsewher e: No Locat ion: [facility] odify By: [email or web address] Encounte r DateTime : 06/01/20 19 04:45:00 PM Not Available Not Available Not Available ondansetr on 4 mg disintegr ating tablet DISSOLVE 1 TABLET ON THE TONGUE EVERY 8 HOURS NEEDED FOR NAUSEA OR VOMITING 02/16 completed Not Available Not Available Not Available betametha sone dipropion ate 0.05 % lotion apply by topical route 2 times every day a few drops to the affected area(s) in the morning and at bedtime ; rub in gently and complete ly 02/16 completed Prescrib ed Elsewher e: No Locat ion: [facility] Modify By: [email or web address] Encounte r DateTime : 07/16/19 10:15:00 AM Not Available Not Available Not Available Ortho-Cyc abigail (28) 0.25 mg-35 mcg tablet take 1 tablet by oral route every day 10/23 completed Prescrib ed Elsewher e: No Locat ion: [facility] odify By: keon avalos DateTime : 10/23/19 12 04:45:00 PM Not Available Not Available Not Available active Not Available Not Avai lable Not Available Probiotic active Not Available Not Ellen ilable Not Available Lomedia 24 Fe 1 mg-20 mcg (24)/75 mg (4) tablet take 1 tablet by oral route every day 11/16 completed Prescrib ed Elsewher e: No [facility] odify By: deangelo Cedillo r DateTime : 06/11/19 15 01:00:00 PM Not Available Not Available Not Available 28 mg-800 mcg tablet 06/25 completed Prescrib ed Elsewher e: Yes [facility] odify By: deangelo tompkins DateTime : 05/21/20 19 04:15:00 PM Not Available Not Available Not Available Vitals Date Recorded Body weight Systolic blood pressure Diastolic blood pressure Provider Name and Address Organization Details Last Updated DateTime 06/26/2024 390710.467 99 g 129 mm[Hg] 85 mm[Hg] Roseanne Marcelo [facility] 06/26/2024 12:41:27 Date Recorded Body height Body mass index (BMI) Body weight Body height Body mass index (BMI) Body weight Systolic blood pressure Diastolic blood pressure Systolic blood pressure Diastolic blood pressure Provider Name and Address Organization Details Last Updated DateTime 5 160.02 cm 40.7 kg/m2 342169. 25 g 160.02 cm 40.7 kg/m2 812736. 25 g 126 mm[Hg] 79 mm[Hg] 126 mm[Hg] 79 mm[Hg] Roseanne Marcelo [facility] 5 16:20:42 Date Recorded Body height Body mass index (BMI) Body weight Systolic blood pressure Diastolic blood pressure Provider Name and Address Organization Details Last Updated DateTime 07/10/2024 160.02 cm 40.9 kg/m2 621283.8 4 g 144 mm[Hg] 86 mm[Hg] Roseanne Marcelo [facility] 5 11:54:22 Social History Question Answer Notes LastModified by Organizat ion Details LastModified Time Tobacco Smoking Status Never Smoker Judith freeman [facility] 02/16/2022 15:37:44 Do You Have An Advance Directive? No [email or web address] Information not available 02/16/2022 What Is Your Level Of Alcohol Consumption? Occasional [email or web address] Information not available 02/16/2022 How Many Years Have You Consumed Alcohol? 10 [email or web address] Information not available 02/16/2022 Are You Blind Or Do You Have Difficulty Seeing? No [email or web address] Information not available 02/16/2022 What Is Your Level Of Caffeine Consumption? Moderate [email or web address] Information not available 02/16/2022 How Much Tobacco Do You Chew? None [email or web address] Information not available 11/29/2023 In The 14 Days Before Symptom Onset, Have You Had Close Contact With A Laboratory-confir med COVID-19 While That Case Was Ill? No Information not available 02/16/2022 In The 14 Days Before Symptom Onset, Have You Had Close Contact With A Person Who Is Under Investigation For COVID-19 While That Person Was Ill? No Information not available 02/16/2022 Have You Been To An Area Known To Be High Risk For COVID-19? No [email or web address] Information not available 02/16/2022 Are You Deaf Or Do You Have Serious Difficulty Hearing? No [email or web address] Information not available 02/16/2022 What Type Of Diet Are You Following? REGULAR [email or web address] Information not available 02/16/2022 What Is The Highest Grade Or Level Of School You Have Completed Or The Highest Degree You Have Received? 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 Yes [email or web address] Information not available 02/16/2022 Have You Ever Been Counseled For Unhealthy Alcohol Use? No [email or web address] Information not available 02/16/2022 Do You Use Protection During Sex? No [email or web address] Information not available 02/16/2022 Do You Use Your Seat Belt Or Car Seat Routinely? Yes [email or web address] Information not available 02/16/2022 Do You Have Smoke And Carbon Monoxide Detectors In Your Home? Yes Information not available 02/16/2022 How Much Tobacco Do You Smoke? No [email or web address] Information not available 11/29/2023 Do You Feel Stressed (tense, Restless, Nervous, Or Anxious, Or Unable To Sleep At Night)? [id number] [email or web address] Information not available 02/16/2022 Do You Use Any Illicit Or Recreational Drugs? No [email or web address] Information not available 02/16/2022 Do You Use Sunscreen Routinely? Yes [email or web address] Information not available 02/16/2022 Has Tobacco Cessation Counseling Been Provided? No [email or web address] Information not available 02/16/2022 Have You Used IV Drugs? No [email or web address] Information not available 02/16/2022 Do You Or Have You Ever Used Any Other Forms Of Tobacco Or Nicotine? No Information not available 02/16/2022 Sex: Unknown Functional Status Question Answer Note LastModified by Organizat ion Details LastModified Time Do you have difficulty walking or climbing stairs? No [email or web address] Information not available 02/16/2022 Are you able to walk? YESWOREST [email or web address] Information not available 02/16/2022 Are you able to care for yourself? Yes [email or web address] Information not available 02/16/2022 Do you have difficulty dressing or bathing? No Information not available 02/16/2022 What is your exercise level? Occasional [email or web address] Information not available 02/16/2022 Mental Status None recorded. Family History Relationship Description Onset Age of this Age Resolved Age Notes LastModified by Organization Details LastModified Time Paternal Aunt Malignant tumor of breast [email or web address] Not available 2022 15:12:45 Mother Breast lump Not availa ble 11/29/2023 12:21:14 Medical History Condition Response Allergies (Food, seasonal, environmental ) N Other N Breast Cancer N Drug/Latex Allergies/Reactions N Blood Transfusion N Dermatologic Disorders N Lung Disease N Defects or Inherited Disease N Breast Problem N Gestational Diabetes N Hematologic disorders N Anesthesia Complications N History of STI Y Deep Vein Thrombosis N Polycystic ovary syndrome N Anxiety Disorder N Autoimmune disease N Arthritis N Infertility N Polyps N Acid Reflux (GERD) N History of abnormal pap Y Cancer N Stroke N Varicosities N Neurologic/Epilepsy N Endometriosis N High Cholesterol N Headaches N Fibromyalgia N Kidney Disease N Heart Problems N Kidney or Bladder Problems N Thyroid Problems N GI Problems N Eating Disorder N Anemia N Art (IVF or FET) N Psychiatric Illness N Ovarian Cancer N Diabetes N Pulmonary (TB, Asthma) N Hepatitis/Liver Disease N No Past Medical History N Eczema N Urinary Tract Infection N Abuse/Domestic Violence N Asthma N Trauma/Violence N Depression/ depression N Heart Disease N Pre-Eclampsia N Hypertension N Osteoporosis N Thrombophilias N Gynecological History Statement/Question Response Abnormal Pap Y Date of LMP On BCP's at Conception? N N Was last menstrual period normal Y STIs/STDs Y HPV Vaccine N Duration of Flow (days) 3 Current Control Method Age at First Child 28 Date of control 1990 Sexually Active? Y Condoms Menses Monthly N Age of first menstrual cycle 16 Date of Last Pap Smear 11/29/2023 Sexual Problems? N Desired Control Method None LMP Unknown N Obstetrics History GPAL:G 2 P 1 0 0 1 Type Value Full Term 1 Living 1 Total 2 Past Encounters Encounter ID Performer Location Encounter Start Date Encounter Closed Date Diagnosis/Indication Diagnosis SNOMED-CT Code Diagnosis ICD10 Code Diagnosis Note [id number] Jesse Galvez MD [facility] [address],[facility] [place] [address] 08/28/2021 15:27:57 08/28/2021 16:24:00 Vulvovaginitis 55383952 N76.0 This patient is a 30-year-ol d female presents for vulvar irritation . She denies any discharge or foul odor. She has persistent irritation of the perivulvar area and vulva. She is examined. The vulvar it has inflammati on. The vulva and distal vagina otherwise are normal. We agreed to treat with Diflucan. We discussed other treatment options and adjunct treatments . We agreed to treat only with Diflucan. [id number] Milla Gonzalez CNM [facility] [address] [address] 02/16/2022 15:19:44 02/16/2022 15:59:50 Gynecologic examination 84931415 Z01.419 [id number] RAYMOND BAIN MD [place] [address] [address] 03/08/2023 15:02:01 03/08/2023 15:52:08 Mass of left breast 9538003233 0251945 N63.20 -pea sized, mobile, superficia l breast lump on left breast- mom with hx of atypical ductal hyperplasi a [id number] AGNIESZKA Gee [place] [address] [address] 11/29/2023 12:20:27 11/29/2023 13:33:16 Gynecologic examination 69788613 Z01.419 WWEBC - declinedpa p updateddec lined STI screenenco uraged annual exam with PCP It is strongly advised to have an annual flu shot and up can obtain at most pharmacies . If you have not had a TDap shot in the last 10 years you should obtain one as well. Discussed with patient & provided with informatio n regarding HPV vaccine if applicable . Encourage safe sexual practices, to use condoms and limit partners if not already in a monogamous relationsh ip. Do monthly self breast exams. BRCA testing is now available for patients with strong genetic history of female cancer. If interested contact the office. Engage in regular exercise. Avoid tobacco and illicit drugs. This lifestyle behavior pattern will lead to less health conditions and longer life span. If BMI greater than 25 dietary consult advised. Patient received above instructio ns, and questions have been answered. If you have any questions please call or respond to this email. Patient was made aware of the patient portal and may obtain a paper copy of today's plan if desired. Irregular periods 436947 07 N92.6 Detailed health hx obtained and reviewedUP T (-)recomme nded labs - ordereddis cussed need to have a period at least every 3 months if not on BC for endometria l protection f/u to discuss labs scheduled Time spent in visit is a total of 25 mins with at least 50% of visit consisting of counseling and review of plan of care. Screening procedure 2012 5006 Z13.9 [id number] AGNIESZKA Gee [place] [address] [address] 12/13/2023 09:44:58 12/13/2023 11:12:32 Irregular periods 60204705 N92.6 Reviewed updated labs - elevated testostero ne, suspect PCOS given labs and menstrual hxdiscusse d PCOS in-depth/e ndometrial protection /managemen t options/et c. We had decided on cyclic progestero ne. At the end of the visit we decided to do a UPT prior to starting the cyclic progestero ne. UPT (+) todaydiscu ssed with ptbhcg orderedrec ommended daily PNV starting now, precaution s discussedw ill have OB dept reach out to pt with bhcg results/sc heduling optionsque stions answered Time spent in visit is a total of 30 mins with at least 50% of visit consisting of counseling and review of plan of care. test positive 161181837 Z32.01 [id number] [facility] [address],[place] [address] 12/18/2023 16:23:43 12/18/2023 17:03:10 Uncertain viability of 696633868 O36.80X0 Z36.87 Z3A.01 [id number] Jesse Galvez MD [place] [address],[place] [address] 12/30/2023 16:52:22 12/30/2023 17:42:49 screening 351865017 Z36.87 Z3A.01 [id number] Jesse Galvez MD [place] [address],[place] [address] 01/10/2024 12:28:21 01/10/2024 14:21:36 Amenorrhea 67311085 N91.2 this patient is a 33 year-old female who presents for amenorrhea . She is a positive test. Ultrasound revealed a 1st trimester gestation. Patient has no complaints . We talked about early care. Talked about genetic screening. We talked about her ultrasound results. We talked about the 12 week ultrasound that has genetic screening components . She was given recommenda tions on exercise, diet, over-the-c ounter medication s. We reviewed her obstetric history. We reviewed her medical history. We reviewed her social history. She will begin routine care at her next visit. wants repeat with salpingect daphney [id number] [facility] [address],[place] [address] 01/30/2024 16:26:10 01/30/2024 17:08:57 screening 350006274 Z36.82 Z3A.12 [id number] Jesse Galvez MD [place] [address],[place] [address] 01/30/2024 16:27:57 01/31/2024 01:18:45 Routine care 485735859 Z34.91 [id number] Jesse Galvez MD [place] [address],[place] [address] 03/02/2024 16:00:53 03/02/2024 16:59:33 Routine care 326319515 Z34.91 [id number] [facility] [address],[place] [address] 04/03/2024 14:57:51 04/03/2024 16:04:18 screening for malformation 953508025 Z36.3 Z3A.21 [id number] Jesse Galvez MD [place] [address],[place] [address] 04/03/2024 14:59:26 04/03/2024 16:46:40 Routine care 325232655 Z34.91 [id number] [facility] [address],[place] [address] 04/28/2024 17:19:10 04/28/2024 17:58:59 Marginal insertion of umbilical cord 48442825 O43.129 O43.112 Z3A.24 [id number] RAYMOND BAIN MD [place] [address],[place] [address] 04/28/2024 17:21:55 05/01/2024 08:32:16 Placenta circumvallata 6107381 O43.119 Marginal i nsertion of umbilical cord 12556270 O43.129 Uterine sc ar from previous surgery affecting 61719449 O34.29 Maternal o besity complicating , childbirth and the puerperium, antepartum 2210674674 07 O99.212 Gestation period, 24 weeks 064076663 Z3A.24 [id number] Jesse Galvez MD [place] [address],[place] [address] 05/15/2024 14:43:51 05/15/2024 15:41:36 section following previous section 761208364 O34.219 [id number] [facility] [address],[place] [address] 05/25/2024 13:54:26 05/25/2024 14:36:33 Marginal insertion of umbilical cord 72574008 O43.129 O43.112 Z3A.28 [id number] MD rBandi Coleman [address],[place] [address] 05/25/2024 13:55:16 05/25/2024 15:13:35 Routine care 894098724 Z34.91 [id number] MD Brandi Coleman [address],[place] [address] 06/19/2024 10:44:43 06/19/2024 12:18:22 Routine care 178119963 Z34.91 [id number] [facility] [address],[place] [address] 06/26/2024 11:59:09 06/26/2024 13:32:32 Marginal insertion of umbilical cord 38894364 O43.129 O43.112 Z3A.33 [id number] MD Brandi Coleman [address],[place] [address] 06/26/2024 11:59:40 06/26/2024 13:32:22 [id number] MD Brandi Coleman [address],[place] [address] 07/03/2024 14:59:18 07/06/2024 23:08:53 [id number] MD Brandi Coleman [address],[place] [address] 07/03/2024 15:45:30 07/03/2024 16:37:17 Routine care 493764292 Z34.91 [id number] MD Brandi Coleman [address] [address] 07/10/2024 11:45:07 07/10/2024 12:42:52 Routine care 489648758 Z34.91 Health Concerns Section Related Observation LastModified by Organization Detai ls LastModified Time None Recorded Concern Status LastModified by Organization Details LastModified Time None Recorded Advance Directives Directive N: Payers Encounter Date Sequence Insurance Name Policy Number Policy Lopez Covered Member ID Lopez Member ID Guarantor Name 06/26/2024 1 [employer] (PPO) [id number] Candie Liz [id number] Candie Liz 06/26/2024 1 [employer] [id number] Candie Albertote [id number] Candie Liz 07/03/2024 1 [employer] (PP[employer] [id number] Candie iLz [id number] Candie Liz 07/03/2024 1 [employer] (PP[employer] [id number] Candie Liz [id number] Candie Liz 07/10/2024 1 [employer]PP[employer] [id number] Candie Liz [id number] Candie Liz OBGyn Episode Ob Episode Information Episode Created Date Number of Fetuses Patient Bloodtype Patient rh Status Prepregnancy Weight lbs Domestic Partner Domestic Partner Phone Father Name Communications Equipment Installer Status 08/29/19 22 1 CLOSED Fetus Data First Name Last Name Admitted to NICU Weight (g) Sex Living Outcome Pediatric Complications Fetus ID Race Codes Race Delivery Type 4025.62 9 F Full Term [id number] Primary Josias Calculation Initial Josias Date Initial Exam Date Initial Exam Provider Initial Ultrasound Date Last Menstrual Period Date Ultra Sound Weeks Gestation 0 Eighteen To Twenty Week Josias Update Ultra Sound Date Fundal Height At Umbil Quickening Date Ultra Sound Latest Weeks Gestation Final Josias Confirmed By Final Josias Confirmed Date Final Josias Date Ultra Sound Latest Days Gestation 0 0 Menstrual History Last Menstrual Date Menses Monthly On Bcp Conception Prior Menses Frequency Hcg Plus Date Menarche Onset Age Delivery Information Delivery Date Delivery Type Labor Anesthesia Weeks Gestation Incision Type Labor Labor Length Hrs Delivered By Post Complications Tubal Sterilization Discharge Date Comments 0 39.5 Polyhydr a mnios, LGA Discharge Information Feeding Method Contraceptive Method Maternal HG B and HCT Levels Ob Episode Information Episode Created Date Number of Fetuses Patient Bloodtype Patient rh Status Prepregnancy Weight lbs Domestic Partner Domestic Partner Phone Father Name Communications Equipment Installer Status 01/30/20 24 1 O Positive 202 Brian OPEN Fetus Data First Name Last Name Admitted to NICU Weight (g) Sex Living Outcome Pediatric Complications Fetus ID Race Codes Race Delivery Type [id number] Problems Problem Notes PETER noted Problem Name Start Date End Date Resolution Snomed Code Not e Placenta circumvallata 0627798 repeat at 32wk s Large for gestation age fetus [id number] history of w/ poly, 8#15oz previous preg.repeat US At 32 weeks Increased blood pressure 99154160 Had some values at home that were elevated -140/100 Group B Streptococcus carrier [id number] in urine Obese class II [id number] 37wk testing Venous varices [id number] LOWER EXTREMITY Marginal insertion of umbilical cord [id number] serial growth u/s Deliveries by [id number] [facility] Josias Calculation Initial Josias Date Initial Exam Date Initial Exam Provider Initial Ultrasound Date Last Menstrual Period Date Ultra Sound Weeks Gestation 01/30/2024 12/30/2023 7 Eighteen To Twenty Week Josias Update Ultra Sound Date Fundal Height At Umbil Quickening Date Ultra Sound Latest Weeks Gestation Final Josias Confirmed By Final Josias Confirmed Date Final Josias Date Ultra Sound Latest Days Gestation 0 [email or web address] 01/30/2024 08/13/19 25 0 Pre- Flowsheet Flowsheet Date 01/30/2024 Lowe Score Blood Edema Fundus Height Fundus Units Glucose Ketones Leukocytes Nitrite Labor Signs Protein Cervic Dilation Cervic Effacement Cervic Station Type Weight in lbs Pre/Post Dialysis Refused Weight 204.057073641212 BP Diastolic BP Location Tested BP Systolic BP Type 81 L arm 119 sitting Fetus Heart Rate Present A 155 Fetus Movement A No Comments this patient is a 32-year-ol d multiparous female at 12 weeks' gestation who presents for initial care. She has a history of term vaginal births. Her medical, surgical, obstetric history is unremarkable. She is vaccinated. She was given precautions recommendations for . We talked about vaccines in . Talked about care in detail. She is having genetic testing. She had a normal 12 week ultrasound. To begin routine care. Flowsheet Date 03/02/2024 Lowe Score Blood Edema Fundus Height Fundus Units Glucose Ketones Leukocytes Nitrite Labor Signs Protein Cervic Dilation Cervic Effacement Cervic Station Type Weight in lbs Pre/Post Dialysis Refused 207.794571568813 BP Diastolic BP Location Tested BP Systolic BP Type 73 L arm 107 sitting Fetus Heart Rate Present A 145 Fetus Movement A No Comments no complaints, no problems, routine care, no contractions, no vaginal bleeding, no loss of fluid, no cramping Flowsheet Date 04/03/2024 Lowe Score Blood Edema Fundus Height Fundus Units Glucose Ketones Leukocytes Nitrite Labor Signs Protein Cervic Dilation Cervic Effacement Cervic Station Type Weight in lbs Pre/Post Dialysis Refused BP Diastolic BP Location Tested BP Systolic BP Type Fetus Heart Rate Present Fetus Movement Comments Flowsheet Date 04/03/2024 Lowe Score Blood Edema Fundus Height Fundus Units Glucose Ketones Leukocytes Nitrite Labor Signs Protein Cervic Dilation Cervic Effacement Cervic Station 21 cm Type Weight in lbs Pre/Post Dialysis Refused 211.156977341375 BP Diastolic BP Location Tested BP Systolic BP Type 76 L arm 120 sitting Fetus Heart Rate Present A 145 Fetus Movement A Yes Comments no complaints, no problems, routine care, no contractions, no vaginal bleeding, no loss of fluid, no cramping Flowsheet Date 04/28/2024 Lowe Score Blood Edema Fundus Height Fundus Units Glucose Ketones Leukocytes Nitrite Labor Signs Protein Cervic Dilation Cervic Effacement Cervic Station Type Weight in lbs Pre/Post Dialysis Refused BP Diastolic BP Location Tested BP Systolic BP Type Fetus Heart Rate Present Fetus Movement Comments Flowsheet Date 04/28/2024 Lowe Score Blood Edema Fundus Height Fundus Units Glucose Ketones Leukocytes Nitrite Labor Signs Protein Cervic Dilation Cervic Effacement Cervic Station neg none none trace Type Weight in lbs Pre/Post Dialysis Refused Weight 215.981359559699 BP Diastolic BP Location Tested BP Systolic BP Type 71 L arm 116 sitting Fetus Heart Rate Present A Present Fetus Movement A Yes Comments Doing well, good movem ent. No cramping or bleeding. EFW 54%, normal OSMAR. Discussed serial growth US for marginal cord insertion. Plan for repeat c section. Discussed GCT and labs for next visit. RTC 4 weeks. Flowsheet Date 05/15/2024 Lowe Score Blood Edema Fundus Height Fundus Units Glucose Ketones Leukocytes Nitrite Labor Signs Protein Cervic Dilation Cervic Effacement Cervic Station Type Weight in lbs Pre/Post Dialysis Refused 221.613272968416 BP Diastolic BP Location Tested BP Systolic BP Type 77 L arm 123 sitting Fetus Heart Rate Present A 145 Fetus Movement A Yes Comments no complaints, no problems, routine care, no contractions, no vaginal bleeding, no loss of fluid, no cramping Flowsheet Date 05/25/2024 Lowe Score Blood Edema Fundus Height Fundus Units Glucose Ketones Leukocytes Nitrite Labor Signs Protein Cervic Dilation Cervic Effacement Cervic Station Type Weight in lbs Pre/Post Dialysis Refused BP Diastolic BP Location Tested BP Systolic BP Type Fetus Heart Rate Present Fetus Movement Comments Flowsheet Date 05/25/2024 Lowe Score Blood Edema Fundus Height Fundus Units Glucose Ketones Leukocytes Nitrite Labor Signs Protein Cervic Dilation Cervic Effacement Cervic Station Type Weight in lbs Pre/Post Dialysis Refused 222.01825114653 BP Diastolic BP Location Tested BP Systolic BP Type 82 L arm 127 sitting Fetus Heart Rate Present A 144 Fetus Movement A Yes Comments no complaints, no problems, routine care, no contractions, no vaginal bleeding, no loss of fluid, no cramping normal growth ultrasound today Flowsheet Date 06/19/2024 Lowe Score Blood Edema Fundus Height Fundus Units Glucose Ketones Leukocytes Nitrite Labor Signs Protein Cervic Dilation Cervic Effacement Cervic Station Type Weight in lbs Pre/Post Dialysis Refused 227.052001061448 BP Diastolic BP Location Tested BP Systolic BP Type 80 L arm 130 sitting Fetus Heart Rate Present Fetus Movement A Yes Comments SOB - mass effect vs cardio/ pulm, no worsening edema, nornal cardiac rythm,routine care, no contractions, no vaginal bleeding, no loss of fluid, no cramping Flowsheet Date 06/26/2024 Lowe Score Blood Edema Fundus Height Fundus Units Glucose Ketones Leukocytes Nitrite Labor Signs Protein Cervic Dilation Cervic Effacement Cervic Station Type Weight in lbs Pre/Post Dialysis Refused BP Diastolic BP Location Tested BP Systolic BP Type Fetus Heart Rate Present Fetus Movement Comments Flowsheet Date 06/26/2024 Lowe Score Blood Edema Fundus Height Fundus Units Glucose Ketones Leukocytes Nitrite Labor Signs Protein Cervic Dilation Cervic Effacement Cervic Station Type Weight in lbs Pre/Post Dialysis Refused 227.686265107785 BP Diastolic BP Location Tested BP Systolic BP Type 85 L arm 129 sitting Fetus Heart Rate Present A 154 Fetus Movement A Yes Comments no complaints, no problems, routine care, no contractions, no vaginal bleeding, no loss of fluid, no cramping Flowsheet Date 07/03/2024 Lowe Score Blood Edema Fundus Height Fundus Units Glucose Ketones Leukocytes Nitrite Labor Signs Protein Cervic Dilation Cervic Effacement Cervic Station Type Weight in lbs Pre/Post Dialysis Refused Weight 230.959493830003 BP Diastolic BP Location Tested BP Systolic BP Type 79 L arm 126 sitting Fetus Heart Rate Present Fetus Movement A Yes Comments Flowsheet Date 07/03/2024 Lowe Score Blood Edema Fundus Height Fundus Units Glucose Ketones Leukocytes Nitrite Labor Signs Protein Cervic Dilation Cervic Effacement Cervic Station Type Weight in lbs Pre/Post Dialysis Refused Weight 230.386482605862 BP Diastolic BP Location Tested BP Systolic BP Type 79 L arm 126 sitting Fetus Heart Rate Present A 144 Present Fetus Movement A Yes Comments registered a elevated blood pressure a few days ago. 140/100 home. Denies headache, blurry vision, epigastric pain. Flowsheet Date 07/10/2024 Lowe Score Blood Edema Fundus Height Fundus Units Glucose Ketones Leukocytes Nitrite Labor Signs Protein Cervic Dilation Cervic Effacement Cervic Station Type Weight in lbs Pre/Post Dialysis Refused Weight 231.379258526562 BP Diastolic BP Location Tested BP Systolic BP Type 86 L arm 144 sitting Fetus Heart Rate Present A 142 Present Fetus Movement A Yes Comments Possible gestational hyperte nsion, to monitor at home, GBS done, good movement. Menstrual History Last Menstrual Date Menses Monthly On Bcp Conception Prior Menses Frequency Hcg Plus Date Menarche Onset Age Delivery Information Delivery Date Delivery Type Labor Anesthesia Weeks Gestation Incision Type Labor Labor Length Hrs Delivered By Post Complications Tubal Sterilization Discharge Date Comments Discharge Information Feeding Method Contraceptive Method Maternal HG B and HCT Levels
--- OUTSIDE RECORDS SUMMARY | 2024-07-14 14:45 | XMS_ITS | Clinical Summary ---
Author Organization [facility] Address [address] [place] [address] Care Team Providers Care Medical Front Desk Specialist Name Role Phone Unavailable Primary Care Provider Unavailabl e Immunizations Name Administration Dates Next Due MODERNA COVID-19 (12+) MRNA, LNP-S, PF, 100 MCG/ 0.5 ML DOSE 06/29/2020,06/01/2020 Social History Tobacco Use Types Packs/Day Years Used Date Smoking Tobacco: Never Assessed Comments Unknown Sex and Gender Information Value Date Recorded Sex Assigned at Not on file Legal Sex Female 12:52 PM OPERATIONS INTERN Gender Identity Not on file Sexual Orientation Not on file Plan of Treatment Health Maintenance Due Date Last Done Comments Cervical Cancer Screening Pa p Smear (Age 30 to 64) Every 3 Years 1990 Annual Physical 1993 Hepatitis C 2008 DTaP, Tdap and Td Vaccines ( 1 - Tdap) 2009 Hepatitis B Vaccines (1 of 3 - 19+ 3-dose series) 2009 Cervical Cancer Screening Pa p with HPV Testing (Age 30 to 64) Every 5 Years 2020 Cervical Cancer Screening wi th HPV 2020 COVID-19 Vaccine (2023-2 5 season) 2024 06/29/2020, 06/01/2020 Influenza Adult (#1) 2024 HPV Vaccines Aged Out No longer eligi ble based on patient's age to complete this topic Meningococcal B Vaccine Aged Out No l onger eligible based on patient's age to complete this topic Meningococcal Vaccine Aged Out No julien shayy eligible based on patient's age to complete this topic Pneumococcal Vaccine: Pediatrics (0 to 5 Years) and At-Risk Patients (6 to 64 Years) Aged Out No longer eligible b ased on patient's age to complete this topic RSV Immunizations Under 20 Months Aged Out No longer eligible b ased on patient's age to complete this topic Insurance [facility]
--- OUTSIDE RECORDS SUMMARY | 2024-07-14 14:45 | XMS_ITS | Clinical Summary ---
Author Organization [facility] C Address [address] [place] [address] Care Team Providers Care Character Actress Name Role Phone Hailey Maravilla MD, Denver Cedeno Primary Care Provide r Mynor Chauhan MD Unavailable [phone] Allergies No known active allergies Medications No known medications Active Problems Problem Noted Date Diagnosed Date Preventative health care 07/11/2023 Assessment & Plan (07/11/2023 9:07 AM FREE LANCE ARTIST): Reviewed labs, screenings and vaccines Class 2 obesity due to exces s calories without serious comorbidity with body mass index (BMI) of 35.0 to 35.9 in adult 07/11/2023 Assessment & Plan (07/11/2023 9:07 AM FREE LANCE ARTIST): Monitor weight Varicose veins of left lower extremity with pain 07/11/2023 Family history of first degr ee relative with bicuspid aortic valve 07/11/2023 Immunizations Name Administration Dates Next Due Influenza, Unspecified 04/03/2023(Deferr ed: Patient Refused),04/03/2022(Deferred: Patient Refused) Tdap 03/11/2019 Surgical History Surgery Date Site/Laterality Comments SECTION Family History Medical History Relation Name Comments Bladder Cancer Father Heart disease Father Hypertension Father Hypertension Mother Melanoma Mother Diabetes Paternal Grandfather Heart disease Paternal Grandfather Relation Name Status Comments Father Alive Mother Alive Paternal Grandfather Social History Tobacco Use Types Packs/Day Years Used Date Smoking Tobacco: Never Smokeless Tobacco: Never Tobacco Cessation:Counseling Given: Not Answered AUDIT-C Answer Date Recorded Q1: How often do you have a drink containing alc ohol? 2-3 times a week 07/11/2023 Q2: How many drinks containi ng alcohol do you have on a typical day when you are drinking? 1 or 2 07/11/2023 Q3: How often do you have si x or more drinks on one occasion? Never 07/11/2023 PHQ-2 Answer Date Recorded PHQ-2 Total Score (If total score is 3 or more points, staff should administer the PHQ-9) 0 03/16/2024 Personal Safety Answer Date Recorded Getting School Help Needed Not on file 07/09 Comments Unknown Sex and Gender Information Value Date Recorded Sex Assigned at Not on file Legal Sex Female 1:08 PM CDT Gender Identity Not on file Sexual Orientation Not on file Obstetrics History Last Filed Vital Signs Vital Sign Reading Time Taken Comments Blood Pressure 100/64 03/16/2024 2:20 PM CDT Pulse 88 03/16/2024 2:20 PM CDT Temperature 36.1 C (97 F) 03/16/2024 2:20 PM CDT Respiratory Rate 16 03/16/2024 2:20 PM CDT Oxygen Saturation 99% 03/16/2024 2:20 PM CDT Inhaled Oxygen Concentration - - Weight 94.8 kg (209 lb) 03/16/2024 2:20 PM CDT Height 158.8 cm (5' 2.5 ) 03/16/2024 2:20 PM CDT Body Mass Index 37.62 03/16/2024 2:20 PM CDT Plan of Treatment Health Maintenance Due Date Last Done Comments Hepatitis C Screening 1990 Hepatitis B Screening 2008 Cervical Cancer Screening 02/16/2023 02/16/2022 Covid-19 Vaccine ( season) 2024 06/29/2020, 06/01/2020 Influenza Vaccine (#1) 2024 Regular Well Visit/Exam 18-64 07/11/2024 07/11/2023 Depression Screening 03/16/2025 03/16/2024, 07/11/2023 DTaP/Tdap/Td Vaccine (2 - Td or Tdap) 03/11/2029 03/11/2019 HPV Vaccines Aged Out No longer eligi ble based on patient's age to complete this topic Pneumococcal vaccine <65 Aged Out No longer eligible based on patient's age to complete this topic Varicella Vaccines Discontinued Procedures Procedure Name Priority Date/Time Associated Diagnosis Comments PAP SMEAR WITH HPV Routine 02/16/2022 from Last 3 Months or Most Recently Relevant to Health Maintenance Results * HM PAP SMEAR WITH HPV (02/16/2022) Scribed Pap Smear w/HPV Normal us Historical Provider HEALTH MAINTENANCE Final Result from Last 3 Months or Most Recently Relevant to Health Maintenance Insurance [employer] OPEN ACCESS Care Teams Character Actress Relationship Specialty Start Date End Date Denver Hart Jr., MD [address] [place] [id number] PCP - General Internal Medicine 07/11/23 Mynor Chauhan MD [address] [place] [address] Obstetrics and Gynecology 07/11/23
--- OUTSIDE RECORDS SUMMARY | 2024-07-14 14:45 | XMS_ITS | Referral Summary ---
Author Organization [facility] C Address [address] [place] [address] Care Team Providers Care Rail Project Engineer Name Role Phone Hailey Maravilla MD, Denver Cedeno Primary Care Provide r Mynor Chauhan MD Unavailable [phone] Allergies No known active allergies Medications No known medications Active Problems Problem Noted Date Diagnosed Date Preventative health care 07/11/2023 Assessment & Plan (07/11/2023 9:07 AM TRANSIT SPECIALIST): Reviewed labs, screenings and vaccines Class 2 obesity due to exces s calories without serious comorbidity with body mass index (BMI) of 35.0 to 35.9 in adult 07/11/2023 Assessment & Plan (07/11/2023 9:07 AM TRANSIT SPECIALIST): Monitor weight Varicose veins of left lower extremity with pain 07/11/2023 Family history of first degr ee relative with bicuspid aortic valve 07/11/2023 Immunizations Name Administration Dates Next Due Influenza, Unspecified 04/03/2023(Deferr ed: Patient Refused),04/03/2022(Deferred: Patient Refused) Tdap 03/11/2019 Social History Tobacco Use Types Packs/Day Years [...] on file Sexual Orientation Not on file Last Filed Vital Signs Vital Sign Reading [...] 03/16/2024 2:20 PM CDT Plan of Treatment Not on file Procedures Procedure Name Priority Date/Time Associated Diagnosis Comments PAP SMEAR WITH HPV Routine 02/16/2022 from Last 3 Months or Most Recently Relevant to Health Maintenance Results * PAP SMEAR WITH HPV (02/16/2022) Scribed Pap Smear w/HPV Normal us Historical Provider HEALTH MAINTENANCE Final Result from Last 3 Months or Most Recently Relevant to Health Maintenance Insurance [employer] OPEN ACCESS Care Teams Rail Project Engineer Relationship Specialty Start Date End Date Denver Hart Jr., MD [address] [place] [id number] PCP - General Internal Medicine 07/11/23 Mynor Chauhan MD [address] [place] [address] Obstetrics and Gynecology 07/11/23
--- OUTSIDE RECORDS SUMMARY | 2024-07-14 14:45 | XMS_ITS | Encounter Summary ---
Author Organization [facility] Address [address] [place] [address] Care Team Providers Care Urology Surgeon Name Role Phone Hailey Maravilla MD, Denver Cedeno Primary Care Provide r Mynor Chauhan MD Unavailable [phone] Encounter Details Date Type Department Care Team (Late st Contact Info) Description 09/12/2023 E-Visit [facility] Primary Care [address] [address] Denver Hart Jr., MD [facility] [address] Semaglutide Social History Tobacco Use Types Packs/Day Years Used Date Smoking Tobacco: Never Smokeless Tobacco: Never AUDIT-C Answer Date Recorded Q1: How often [...] points, staff should administer the PHQ-9) 0 07/11/2023 Personal Safety Answer Date Recorded Getting School Help Needed Not on file 07/09 Comments Unknown Sex and Gender Information Value Date Recorded Sex Assigned at Not on file Legal Sex Female 1:08 PM CDT Gender Identity Not on file Sexual Orientation Not on file documented as of this encounter Plan of Treatment Not on file documented as of this encounter Visit Diagnoses Not on filedocumented in this encounter Care Teams Urology Surgeon Relationship Specialty Start Date End Date Denver Hart Jr., MD [address] [place] [id number] PCP - General Internal Medicine 07/11/23 Mynor Chauhan MD [address] [place] [address] Obstetrics and Gynecology 07/11/23 documented as of this encounter
[2024-07-14 14:46] VITALS: BP 126/78; PULSE 91
[2024-07-14 14:55] LABS: Add Urine Microscopic? YES; Appearance Urine Turbid (Clear); Bacteria Urine 4+ /hpf; Bilirubin Urine Negative (Negative); Blood Urine Negative (Negative); Color Urine Yellow (Yellow); Glucose Urine UA Negative (Negative); Ketones Urine 3+ mg/dL (Negative); Leukocyte Esterase Ur 1+ LEU/UL (Negative); Need Manual Microscopic Reviewed; Nitrate Urine Negative (Negative); Non Pathogenic Casts 0-2; Protein Urine Trace mg/dL (Negative); RBC Urine 0-2 /hpf (0-2); Specific Grav Ur 1.023 (1.001-1.035); Squamous Epithelial Cell Urine Many /hpf (Few); Urobilinogen Urine 0.2 mg/dL (<2.0); WBC Urine 21-50 /hpf (0-3); pH Urine 6.5 (5.0-9.0)
[2024-07-14 15:01] VITALS: BP 118/76; PULSE 101
[2024-07-14 15:25] VITALS: PULSE 94
== END 2024-07-14 15:20 | disposition home or self-care (01) ==
LOC: ANHOBOP 13:52 → ANHOBPP 13:57
PROVIDERS: PCP Hospitalist; Visit Provider Obstetrics & Gynecology
DX: O13.9 Gestational [pregnancy-induced] hypertension without significant proteinuria, unspecified trimester (principal); Z3A.00 Weeks of gestation of pregnancy not specified
CPT/HCPCS: 36415; 59025; 80053; 81001; 82570; 84156; 84550; 85025; 99199

== ENCOUNTER 2024-07-22 10:29 | Outpatient (CLI) | payer OTHER, SELFPAY ==
--- OUTSIDE RECORDS SUMMARY | 2024-07-22 10:42 | XMS_ITS | Data Portability ---
Author Organization [facility] Address [address] [place] [address] [place] [address] Assessment No assessment recorded. Plan of Treatment Reminders Order Date Submit Date Provider Last Modified By Organization Details Last Modified Time Details Appointments SURG CSectio n 2024 07:30A Ben GALVEZ [...] SCHEDULE Not available Not available Not available Lab None recorde d. Referral None recorde d. Procedures None recorde d. Surgeries None recorde d. Imaging US, obstetr ic, biophys ical profile + non-str ess test 2024 025 [email or web address] [place], [address], [place], [address], 07/18/2024 22:46:33 non-str ess test 2024 025 [email or web address] [address], [address], [place], [address], 07/21/2024 01:18:14 Medication Orders None recorde d. Patient TargetsNo targets recorded. Patient InstructionsNo instructions recorded. Reason for Referral None Reported. Results Created Date Observation Date Name Description Value Unit Range Abnormal Flag Note LastModifiedBy Organization Detail LastModifiedTime 07/10/1907/10/2024 CULTU RE: GROUP B STREP SCREE N, REFLE X SUSCE PTIBI LITY result report SEE RESULT S BELOW abnormal Test: Cultu re: Group B Strep , Refle x Susce ptibi lity ([facility]/ [facility]/K H/[facility] ) Speci men Sourc e: Vagin a/Rec courtney Speci men Type: Vagin al/Re ctal Speci men Date: 025 1319 Resul t Date: 2024 1548 Resul t Statu s: Final resul t Abnor mal: Yes Resul ting Lab: [facility] [address] [facility] [address] Tel: CULTU RE ----- ----- ----- --- Posit gosia Strep tococ cus agala ctiae (Grou p B) (Abno rmal) Clind amyci n = resis tant, eryth romyc in = resis tant. Cefaz katarina may be used for intra partu m proph ylaxi s in penic illin -vandana rgic women at low risk, and Vanco mycin is recom charity d for women at high risk for anaph ylaxi s. Susce ptibi lity testi ng is not neces mayte for these drugs . Not Available [facility] (Lab) [address], [place], [address], 07/14/2024 16:51:44 06/26/1906/26/2024 US, obste tric, follo w-up No observ ation record ed. [email or web address] [address], [place], [address], 06/27/2024 20:57:02 06/26/1906/26/2024 US, obste tric, follo w-up No observ ation record ed. [facility] [address], [place], [address], 06/26/2024 17:53:31 07/17/19 25 07/17/2024 non-s tress test No observ ation record ed. [email or web address] [place] [address], [place], [address], 07/17/2024 16:34:53 07/17/19 25 07/17/2024 US, obste tric, bioph ysica l profi le + non-s tress test No observ ation record ed. [facility] [address], [place], [address], 07/17/2024 17:11:31 07/17/19 25 07/17/2024 US, obste tric, follo w-up No observ ation record ed. [email or web address] [address], [place], [address], 07/20/2024 09:39:51 Result Notes None recorded. Problems Name Problem SNOMED Code Status Onset Date Resolution Date Notes Provider Name and Address Organization Details Recorded Time Pregnanc y 08062704 Active 2023 Roseanne freeman, [facility] 4 17:24:41 Obese class II 01404182221 4105 Active 37wk testing Wes Dewitt [facility] 4 15:46:46 Deliveri es by 729598467 Active [facility] RAYMOND BAIN MD [address], [place], [address], [facility] 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 4 15:44:42 Large for gestatio n age fetus 022140397 Active history of w/ poly, 8#15oz previous preg. repeat US At 32 weeks Jesse Galvez MD [address], [place], [address], [facility] 4 16:36:10 Venous varices 172494067 Active LOWER EXTREMITY Jesse Galvez MD [address], [place], [address], [facility] 5 11:34:29 Marginal insertio n of umbilica l cord 87426155 Active serial growth /s [facility] 4 12:11:33 Placenta circumva llata 4750734 Active repeat at 32wks [facility] 4 12:11:44 Increase d blood pressure 10830904 Active Had some values at home that were elevated -140/100 Jesse Galvez MD [address], [place], [address], [facility] 5 16:35:14 Problem Notes None recorded. Procedures Surgical History Date Name Laterality Status Provider Name and Address Organization Details Recorded Time 4 Date of Last Pap Smear completed Janene Huddleston [facility] 12/13/2023 09:20:57 0 section completed Carla Brady [facility] 03/08/2023 15:13:50 Imaging Results Imaging Date Name Status LastModified by Organiz ation Details LastModified Time 06/26/2024 US, obstetric, follow-up completed [email or web address] [address], [place], [address], 06/27/2024 20:57:02 06/26/2024 US, obstetric, follow-up completed [facility] [address], [place], [address], 06/26/2024 17:53:31 07/17/2024 non-stress test completed [email or web address] [place] [address], [place], [address], 07/17/2024 16:34:53 07/17/2024 US, obstetric, biophysical profile + non-stress test completed [facility] [address], [place], [address], 07/17/2024 17:11:31 07/17/2024 US, obstetric, follow-up completed [email or web address] [address], [place], [address], 07/20/2024 09:39:51 Procedure Notes None recorded. Medical Equipment None [...] Elsewher e: No Locat ion: [facility] M odify By: rima avalos DateTime : 10/24/19 [...] Elsewher e: No Locat ion: [facility]ja [facility] odify By: deangelo Cedillo r DateTime : 11/11/19 09:38:36 AM Not Available Not Available Not Available amoxicill in 875 mg tablet TAKE 1 TABLET BY MOUTH EVERY 12 HOURS UNTIL ALL TAKEN 11/28 completed Not Available Not Available Not Available Metrogel Vaginal 0.75 % (37.5 mg/5 gram) insert 1 applicat orful (37.5MG) by vaginal route every day at bedtime 10/23 completed Prescrib ed Elsewher e: No Locat ion: Kenziemartha titi [facility] odify By: keon avalos DateTime : 10/30/19 11:49:02 AM Not Available Not Available Not [...] Elsewher e: No Locat ion: [facility] odify By: [email or web address] Encount er DateTime : 02/20/20 02:56:36 PM Not Available Not Available Not Available Flagyl 375 mg capsule 02/16 completed Not Available Not Available Not Available Temovate 0.05 % topical ointment apply by topical route 2 times every day a thin layer to the affected area(s) 06/25 completed Prescrib ed Elsewher e: No Locat ion: [facility] odify By: deangelo Cedillo r DateTime : 06/01/20 04:45:00 PM Not Available Not Available Not [...] Prescrib ed Elsewher e: No Locat ion: [facility] ethalto Modify By: [email or web address] Encounte r DateTime : 07/16/19 10:15:00 AM Not Available Not Available Not Available Ortho-Cyc abigail (28) 0.25 mg-35 mcg tablet take 1 tablet by oral route every day 10/23 completed Prescrib ed Elsewher e: No Locat ion: [facility] odify By: keon avalos DateTime : 10/23/19 12 04:45:00 PM Not Available Not Available Not Available nitrofura ntoin monohydra te/macroc rystals 100 mg capsule TAKE 1 CAPSULE BY MOUTH EVERY 12 HOURS FOR 7 DAYS active Not Available Not Available No t Available active Not Available Not Avai lable Not Available Probiotic active Not Available Not Ellen ilable Not Available Lomedia 24 Fe 1 mg-20 mcg (24)/75 mg (4) tablet take 1 tablet by oral route every day 11/16 completed Prescrib ed Elsewher e: No Locat ion: [facility] odify By: [email or web address] Encounte r DateTime : 06/11/19 15 01:00:00 PM Not Available Not Available Not Available 28 mg-800 mcg tablet 06/25 completed Prescrib ed Elsewher e: Yes Loca tion: [facility] odify By: [email or web address] Encounte r DateTime : 05/21/20 19 04:15:00 PM Not Available Not Available Not Available Vitals Date Recorded Body height Body mass index (BMI) Body weight Body height Body mass index (BMI) Body weight Systolic blood pressure Diastolic blood pressure Systolic blood pressure Diastolic blood pressure Provider Name and Address Organization Details Last Updated DateTime 5 160.02 cm 40.7 kg/m2 779673. 25 g 160.02 cm 40.7 kg/m2 762165. 25 g 126 mm[Hg] 79 mm[Hg] 126 mm[Hg] 79 mm[Hg] Roseanne Marcelo [facility] 5 16:20:42 Date Recorded Body height Body mass index (BMI) Body weight Systolic blood pressure Diastolic blood pressure Provider Name and Address Organization Details Last Updated DateTime 07/10/2024 160.02 cm 40.9 kg/m2 287824.8 4 g 144 mm[Hg] 86 mm[Hg] [facility] 5 11:54:22 Date Recorded Body height Body mass index (BMI) Body weight Systolic blood pressure Diastolic blood pressure Provider Name and Address Organization Details Last Updated DateTime 07/17/2024 160.02 cm 41.6 kg/m2 775303.2 1 g 150 mm[Hg] 97 mm[Hg] SOLEDAD Edna [facility] 5 16:16:36 Date Recorded Body height Body mass index (BMI) Body weight Systolic blood pressure Diastolic blood pressure Provider Name and Address Organization Details Last Updated DateTime 07/17/2024 160.02 cm 41.6 kg/m2 007764.2 1 g 150 mm[Hg] 97 mm[Hg] Janene Huddleston [facility] 5 16:44:28 Social History Question Answer Notes LastModified by Organizat ion Details LastModified Time Tobacco Smoking Status Never Smoker Judith freeman, [facility] 02/16/2022 15:37:44 Do You Have An Advance Directive? No [email or web address] Information not available 02/16/2022 What Is Your Level Of Alcohol Consumption? Occasional [email or web address] Information not available 02/16/2022 How Many Years Have You Consumed Alcohol? 10 Information not available 02/16/2022 Are You Blind Or Do You Have Difficulty Seeing? No Information not available 02/16/2022 What Is Your Level Of Caffeine Consumption? Moderate [email or web address] Information not available 02/16/2022 How Much Tobacco Do You Chew? None [email or web address] Information not available 11/29/2023 In The 14 Days Before Symptom Onset, Have You Had Close Contact With A Laboratory-confir med COVID-19 While That Case Was Ill? No [email or web address] Information not available 02/16/2022 In The 14 Days Before Symptom Onset, Have You Had Close Contact With A Person Who Is Under Investigation For COVID-19 While That Person Was Ill? No [email or web address] Information not available 02/16/2022 Have You Been To An Area Known To Be High Risk For COVID-19? No [email or web address] Information not available 02/16/2022 Are You Deaf Or Do You Have Serious Difficulty Hearing? No [email or web address] Information not available 02/16/2022 What Type Of Diet Are You Following? REGULAR Information not available 02/16/2022 What Is The Highest Grade Or Level Of School You Have Completed Or The Highest Degree You Have Received? 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 Yes [email or web address] Information not available 02/16/2022 Have You Ever Been Counseled For Unhealthy Alcohol Use? No [email or web address] Information not available 02/16/2022 Do You Use Protection During Sex? No [email or web address] Information not available 02/16/2022 Do You Use Your Seat Belt Or Car Seat Routinely? Yes [email or web address] Information not available 02/16/2022 Do You Have Smoke And Carbon Monoxide Detectors In Your Home? Yes [email or web address] Information not available 02/16/2022 How Much Tobacco Do You Smoke? No Information not available 11/29/2023 Do You Feel Stressed (tense, Restless, Nervous, Or Anxious, Or Unable To Sleep At Night)? [id number] [email or web address] Information not available 02/16/2022 Do You Use Any Illicit Or Recreational Drugs? No [email or web address] Information not available 02/16/2022 Do You Use Sunscreen Routinely? Yes [email or web address] Information not available 02/16/2022 Has Tobacco Cessation Counseling Been Provided? No [email or web address] Information not available 02/16/2022 Have You Used IV Drugs? No [email or web address] Information not available 02/16/2022 Do You Or Have You Ever Used Any Other Forms Of Tobacco Or Nicotine? No [email or web address] Information not available 02/16/2022 Sex: Unknown Functional Status Question Answer Note LastModified by Organizat ion Details LastModified Time Do you have difficulty walking or climbing stairs? No [email or web address] Information not available 02/16/2022 Are you able to walk? YESWOREST [email or web address] Information not available 02/16/2022 Are you able to care for yourself? Yes [email or web address] Information not available 02/16/2022 Do you have difficulty dressing or bathing? No [email or web address] Information not available 02/16/2022 What is your exercise level? Occasional [email or web address] Information not available 02/16/2022 Mental Status None recorded. Family History Relationship Description Onset Age of this Age Resolved Age Notes LastModified by Organization Details LastModified Time Paternal Aunt Malignant tumor of breast [email or web address] Not available 2022 15:12:45 Mother Breast lump [email or web address] Not availa ble 11/29/2023 12:21:14 Medical History Condition Response Allergies (Food, seasonal, environmental ) N Other N Drug/Latex Allergies/Reactions N Blood Transfusion N Breast Cancer N Dermatologic Disorders N Lung Disease N Defects or Inherited Disease N Breast Problem N Gestational Diabetes N Hematologic disorders N Anesthesia Complications N History of STI Y Deep Vein Thrombosis N Polycystic ovary syndrome N Anxiety Disorder N Autoimmune disease N Arthritis N Polyps N Infertility N Acid Reflux (GERD) N History of abnormal pap Y Cancer N Varicosities N Stroke N Neurologic/Epilepsy N Endometriosis N High Cholesterol N Fibromyalgia N Headaches N Kidney Disease N Heart Problems N Thyroid Problems N Kidney or Bladder Problems N GI Problems N Eating Disorder [...] SNOMED-CT Code Diagnosis ICD10 Code Diagnosis Note [id number] Jesse Galvez MD [place] [address] [address] 08/28/2021 15:27:57 08/28/2021 16:24:00 Vulvovaginitis 77155411 N76.0 This patient is a 30-year-ol d [...] We agreed to treat only with Diflucan. 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 Irregular periods 117708 07 N92.6 Detailed health hx obtained and [...] of care. Screening procedure 2012 5006 Z13.9 [id number] AGNIESZKA Gee [place] [address] [address] 12/13/2023 09:44:58 12/13/2023 11:12:32 Irregular periods 37886840 N92.6 Reviewed updated labs - elevated testostero [...] review of plan of care. test positive 927826369 Z32.01 [id number] [facility] [address],[place] [address] 12/18/2023 16:23:43 12/18/2023 17:03:10 Uncertain viability of 965165012 O36.80X0 Z36.87 Z3A.01 [id number] Jesse Galvez MD [place] [address],[place] [address] 12/30/2023 16:52:22 12/30/2023 17:42:49 screening 232340399 Z36.87 Z3A.01 [id number] Jesse Galvez MD [place] [address] [address] 01/10/2024 12:28:21 01/10/2024 14:21:36 Amenorrhea 14836604 N91.2 this patient is a 33 year-old [...] next visit. wants repeat with salpingect daphney [id number] [facility] [address],[place] [address] 01/30/2024 16:26:10 01/30/2024 17:08:57 screening 130582432 Z36.82 Z3A.12 [id number] Jesse Galvez MD [place] [address],[place] [address] 01/30/2024 16:27:57 01/31/2024 01:18:45 Routine care 840643072 Z34.91 [id number] Jesse Galvez MD [place] [address] [address] 03/02/2024 16:00:53 03/02/2024 16:59:33 Routine care 752877739 Z34.[id number] [facility] [address],[place] [address] 04/03/2024 14:57:51 04/03/2024 16:04:18 screening for malformation 920315936 Z36.3 Z3A.21 [id number] Jesse Galvez MD [place] [address],[place] [address] 04/03/2024 14:59:26 04/03/2024 16:46:40 Routine care 507729739 Z34.[id number] [facility] [address],[place] [address] 04/28/2024 17:19:10 04/28/2024 17:58:59 Marginal insertion of umbilical cord 46846819 O43.129 O43.112 Z3A.24 [id number] RAYMOND BAIN MD [place] [address],[place] [address] 04/28/2024 17:21:55 05/01/2024 08:32:16 Placenta circumvallata 6720366 O43.119 Marginal i nsertion of umbilical cord 81287139 O43.129 Uterine sc ar from previous surgery affecting 91944201 O34.29 Maternal o besity complicating , childbirth and the puerperium, antepartum 5210187314 07 O99.212 Gestation period, 24 weeks 857430368 Z3A.24 [id number] Jesse Galvez MD [place] [address],[place] [address] 05/15/2024 14:43:51 05/15/2024 15:41:36 section following previous section 544642408 O34.[id number] [facility] [address],[place] [address] 05/25/2024 13:54:26 05/25/2024 14:36:33 Marginal insertion of umbilical cord 62989403 O43.129 O43.112 Z3A.28 [id number] Jesse Galvez MD [place] [address],[place] [address] 05/25/2024 13:55:16 05/25/2024 15:13:35 Routine care 987802799 Z34.91 [id number] Jesse Galvez MD [place] [address] [address] 06/19/2024 10:44:43 06/19/2024 12:18:22 Routine care 057954033 Z34.[id number] [facility] [address],[place] [address] 06/26/2024 11:59:09 06/26/2024 13:32:32 Marginal insertion of umbilical cord 13551083 O43.129 O43.112 Z3A.33 [id number] Jesse Galvez MD [place] [address],[place] [address] 06/26/2024 11:59:40 06/26/2024 13:32:22 [id number] Jesse Galvez MD [place] [address],[place] [address] 07/03/2024 14:59:18 07/06/2024 23:08:53 [id number] Jesse Galvez MD [place] [address],[place] [address] 07/03/2024 15:45:30 07/03/2024 16:37:17 Routine care 340417714 Z34.91 [id number] Jesse Galvez MD [place] [address],[place] [address] 07/10/2024 11:45:07 07/10/2024 12:42:52 Routine care 354464208 Z34.91 [id number] SOLEDAD Edna [place] [address],[place] [address] 07/17/2024 15:32:38 07/17/2024 16:44:57 Maternal obesity complicating , childbirth and the puerperium, antepartum 7358720102 07 O99.212 [id number] Therese Dale [place] [address] [address] 07/17/2024 15:33:59 07/17/2024 17:04:39 Maternal obesity complicating , childbirth and the puerperium, antepartum 8914229495 07 O99.213 Z3A.36 [id number] RAYMOND BAIN MD [place] [address] [address] 07/17/2024 15:34:24 07/20/2024 11:42:37 Elevated blood-pressure reading without diagnosis of hypertension 718204635 R03.0 Placenta circumvallata 9431168 O43.119 Marginal i nsertion of umbilical cord 93836047 O43.129 Previous u terine surgical scar 086210740 Z98.891 Gestation period, 36 weeks 12259349 Z3A.36 Health Concerns Section Related Observation LastModified by Organization Detai ls LastModified Time None Recorded Concern Status LastModified by Organization Details LastModified Time None Recorded Advance Directives Directive N: Payers Encounter Date Sequence Insurance Name Policy Number Policy Lopez Covered Member ID Lopez Member ID Guarantor Name 07/03/2024 1 [employer] (PPO) [id number] Candie Liz [id number] Candie Liz 07/10/2024 1 [employer]PP[employer] [id number] Candie Liz [id number] Candie Liz 07/17/2024 1 [employer] (PPO) [id number] Candie Liz [id number] Candie Liz 07/17/2024 1 [employer] - [employer] (PPO) [id number] Candie Liz [id number] Candie Liz 07/17/2024 1 [employer] - [employer] (PPO) [id number] Candie Liz [id number] Candie Liz OBGyn Episode Ob Episode Information Episode Created Date Number of Fetuses Patient Bloodtype Patient rh Status Prepregnancy Weight lbs Domestic Partner Domestic Partner Phone Father Name Twister Tender Status 08/29/19 22 1 CLOSED Fetus Data First Name Last Name Admitted to NICU Weight (g) Sex Living Outcome Pediatric Complications Fetus ID Race Codes Race Delivery Type 4025.62 9 F Full Term [id number] Primary Josias Calculation Initial Josias Date Initial [...] Domestic Partner Domestic Partner Phone Father Name Twister Tender Status 01/30/20 24 1 O Positive 202 Brian OPEN Fetus Data First Name Last Name Admitted to NICU Weight (g) Sex Living Outcome Pediatric Complications Fetus ID Race Codes Race Delivery Type [id number] Problems Problem Notes PETER noted Problem Name Start Date End Date Resolution Snomed Code Not e Placenta circumvallata 2820129 repeat at 32wk s Large for gestation age fetus 686046914 history of w/ poly, 8#15oz previous preg.repeat US At 32 weeks Increased blood pressure 48854576 Had some values at home that were elevated -140/100 Group B Streptococcus carrier 9678342409437 in urine Obese class II 138917531202494 37wk testing Venous varices 991307182 LOWER EXTREMITY Marginal insertion of umbilical cord 09165375 serial growth u/s Deliveries by [id number] [facility] Josias Calculation Initial Josias Date Initial [...] Gestation 0 [email or web address] 01/30/2024 08/13/19 25 0 Pre-colin Flowsheet Flowsheet Date 01/30/2024 Lowe Score Blood Edema Fundus Height Fundus Units Glucose Ketones Leukocytes Nitrite Labor Signs Protein Cervic Dilation Cervic Effacement Cervic Station Type Weight in lbs Pre/Post Dialysis Refused Weight 204.548058253787 BP Diastolic BP Location Tested BP Systolic [...] Type Weight in lbs Pre/Post Dialysis Refused 207.920734499527 BP Diastolic BP Location Tested BP Systolic [...] Type Weight in lbs Pre/Post Dialysis Refused 211.029482323427 BP Diastolic BP Location Tested BP Systolic [...] Weight in lbs Pre/Post Dialysis Refused Weight 215.125310608983 BP Diastolic BP Location Tested BP Systolic [...] Type Weight in lbs Pre/Post Dialysis Refused 221.325366145164 BP Diastolic BP Location Tested BP Systolic [...] Type Weight in lbs Pre/Post Dialysis Refused 222.29723445676 BP Diastolic BP Location Tested BP Systolic [...] Type Weight in lbs Pre/Post Dialysis Refused 227.426060750750 BP Diastolic BP Location Tested BP Systolic [...] Type Weight in lbs Pre/Post Dialysis Refused 227.984761019223 BP Diastolic BP Location Tested BP Systolic [...] Weight in lbs Pre/Post Dialysis Refused Weight 230.278713502175 BP Diastolic BP Location Tested BP Systolic BP Type 79 L arm 126 sitting Fetus Heart Rate Present Fetus Movement A Yes Comments Flowsheet Date 07/03/2024 Lowe Score Blood Edema Fundus Height Fundus Units Glucose Ketones Leukocytes Nitrite Labor Signs Protein Cervic Dilation Cervic Effacement Cervic Station Type Weight in lbs Pre/Post Dialysis Refused Weight 230.907728764948 BP Diastolic BP Location Tested BP Systolic [...] Weight in lbs Pre/Post Dialysis Refused Weight 231.642925854136 BP Diastolic BP Location Tested BP Systolic BP Type 86 L arm 144 sitting Fetus Heart Rate Present A 142 Present Fetus Movement A Yes Comments Possible gestational hyperte nsion, to monitor at home, GBS done, good movement. Flowsheet Date 07/17/2024 Lowe Score Blood Edema Fundus Height Fundus Units Glucose Ketones Leukocytes Nitrite Labor Signs Protein Cervic Dilation Cervic Effacement Cervic Station Type Weight in lbs Pre/Post Dialysis Refused Weight 235.977133834060 BP Diastolic BP Location Tested BP Systolic BP Type 97 L arm 150 sitting Fetus Heart Rate Present Fetus Movement Comments Flowsheet Date 07/17/2024 Lowe Score Blood Edema Fundus Height Fundus Units Glucose Ketones Leukocytes Nitrite Labor Signs Protein Cervic Dilation Cervic Effacement Cervic Station Type Weight in lbs Pre/Post Dialysis Refused BP Diastolic BP Location Tested BP Systolic BP Type Fetus Heart Rate Present Fetus Movement Comments Flowsheet Date 07/17/2024 Lowe Score Blood Edema Fundus Height Fundus Units Glucose Ketones Leukocytes Nitrite Labor Signs Protein Cervic Dilation Cervic Effacement Cervic Station neg trace Type Weight in lbs Pre/Post Dialysis Refused Weight [id number] BP Diastolic BP Location Tested BP Systolic BP Type 97 L arm 150 sitting Fetus Heart Rate Present A 131 Fetus Movement A Yes Comments Good movement. No cram ping or bleeding. Concerned about BPs. Has some elevations since May, very sporadic. Was in L&D earlier this week for evaluation, normal labs. Discussed that patient has now had two elevated BPs in the office, diagnostic for gestational hypertension. Discussed delivery at 37 weeks; will discuss with Dr. Galvez. Warning signs reviewed. Menstrual History Last Menstrual Date Menses Monthly On Bcp Conception Prior Menses Frequency Hcg Plus Date Menarche Onset Age Delivery Information Delivery Date Delivery Type Labor Anesthesia Weeks Gestation Incision Type Labor Labor Length Hrs Delivered By Post Complications Tubal Sterilization Discharge Date Comments Discharge Information Feeding Method Contraceptive Method Maternal HG B and HCT Levels
--- OUTSIDE RECORDS SUMMARY | 2024-07-22 10:42 | XMS_ITS | Encounter Summary ---
Author Organization [facility] Healthcare Address [address] [place] [address] Care Team Providers Care Separator Tender Name Role Phone Hailey Maravilla MD, Denver Cedeno Primary Care Provide r Mynor Chauhan MD Unavailable [phone] Encounter Details Date Type Department Care Team (Late st Contact Info) Description 09/12/2023 E-[address] [facility] Medical Group Primary Care [address] [address] Denver Hart Jr., MD [facility] [address] Semaglutide Social History Tobacco Use [...] on filedocumented in this encounter Care Teams Separator Tender Relationship Specialty Start Date End Date Denver Hart Jr., MD [address] [place] [id number] PCP - General Internal Medicine 07/11/23 Mynor Chauhan MD [address] [place] [address] Obstetrics and Gynecology 07/11/23 documented as of this encounter
--- OUTSIDE RECORDS SUMMARY | 2024-07-22 10:42 | XMS_ITS | Clinical Summary ---
Author Organization [facility] C Address [address] [facility] [place] [address] Care Team Providers Care Rn Transfer Name Role Phone Hailey Maravilla MD, Denver Cedeno Primary Care Provide r Mynor Chauhan MD Unavailable [phone] Allergies No known active allergies Medications No known medications Active Problems Problem Noted Date Diagnosed Date Preventative health care 07/11/2023 Assessment & Plan (07/11/2023 9:07 AM OB/GYN NURSE): Reviewed labs, screenings and vaccines Class 2 obesity due to exces s calories without serious comorbidity with body mass index (BMI) of 35.0 to 35.9 in adult 07/11/2023 Assessment & Plan (07/11/2023 9:07 AM OB/GYN NURSE): Monitor weight Varicose veins of left lower extremity with pain 07/11/2023 Family history of first degr ee relative with bicuspid aortic valve 07/11/2023 Immunizations Immunization Administration Dates Next Due Influenza, Unspecified 04/03/2023(Deferr [...] Most Recently Relevant to Health Maintenance Insurance [employer] OPEN ACCESS Care Teams Rn Transfer Relationship Specialty Start Date End Date Denver Hart Jr., MD [address] [place] [id number] PCP - General Internal Medicine 07/11/23 Mynor Chauhan MD [address] [place] [address] Obstetrics and Gynecology 07/11/23
--- OUTSIDE RECORDS SUMMARY | 2024-07-22 10:42 | XMS_ITS | Clinical Summary ---
Author Organization [facility] Address [address] [place] [address] Care Team Providers Care Youth Support Worker Name Role Phone Unavailable Primary Care Provider Unavailabl e Immunizations Name Administration Dates Next Due MODERNA COVID-19 (12+) MRNA, LNP-S, PF, 100 MCG/ 0.5 ML DOSE 06/29/2020,06/01/2020 Social History Tobacco Use Types Packs/Day Years Used Date Smoking Tobacco: Never Assessed Comments Unknown Sex and Gender Information Value Date Recorded Sex Assigned at Not on file Legal Sex Female 12:52 PM PLY CUTTER Gender Identity Not on file Sexual Orientation [...] patient's age to complete this topic Insurance [employer]
--- OUTSIDE RECORDS SUMMARY | 2024-07-22 10:42 | XMS_ITS | Referral Summary ---
Author Organization [facility] C Address [address] [facility] [place] [address] Care Team Providers Care Office Technologist Name Role Phone Hailey Maravilla MD, Denver Cedeno Primary Care Provide r Mynor Chauhan MD Unavailable [phone] Allergies No known active allergies Medications No known medications Active Problems Problem Noted Date Diagnosed Date Preventative health care 07/11/2023 Assessment & Plan (07/11/2023 9:07 AM LOADMASTER): Reviewed labs, screenings and vaccines Class 2 obesity due to exces s calories without serious comorbidity with body mass index (BMI) of 35.0 to 35.9 in adult 07/11/2023 Assessment & Plan (07/11/2023 9:07 AM LOADMASTER): Monitor weight Varicose veins of left lower [...] Maintenance Insurance [employer] OPEN ACCESS Care Teams Office Technologist Relationship Specialty Start Date End Date Denver Hart Jr., MD [address] [place] [id number] PCP - General Internal Medicine 07/11/23 Mynor Chauhan MD [address] [place] [address] Obstetrics and Gynecology 07/11/23
[2024-07-22 11:40] LABS: Hematocrit 33.2 % (37.0-47.0); Hemoglobin 10.6 g/dL (12.0-15.0); Mean Corpuscular HGB Conc 31.9 g/dl (32-36); Mean Corpuscular Hemoglobin 26.7 pg (26-34); Mean Corpuscular Volume 83.6 fl (80-100); Mean Platelet Volume 10.7 fl (7.4-10.4); Platelet Count Result 258 k/mm3 (150-375); Red Blood Count 3.97 M/mm3 (4.2-5.4); Red Cell Distribution Width 12.8 % (11.5-14.5); White Blood Count 6.7 K/mm3 (4.5-10.0)
[2024-07-22 11:55] LABS: HIV 1/2 Ab P24 Ag Result Negative (Negative)
[2024-07-22 12:21] LABS: Syphilis IgG/IgM Antibody Negative (Negative)
== END 2024-07-22 10:30 | disposition home or self-care (01) ==
LOC: ANHLAB 10:31
PROVIDERS: PCP Hospitalist; Visit Provider Obstetrics & Gynecology
DX: Z01.812 Encounter for preprocedural laboratory examination (principal)
CPT/HCPCS: 36415; 85027; 86593; 86703; 86850; 86900; 86901; G0432

== ENCOUNTER 2024-07-23 05:30 | Inpatient (IN) | payer OTHER, SELFPAY ==
[2024-07-23] VITALS (71 sets, daily range): BP systolic 80–152; BP diastolic 60–96; PULSE 58–129; RESP 15–18; TEMP 36.1–36.9; O2SAT 97–100; BMI 42.1
--- OUTSIDE RECORDS SUMMARY | 2024-07-23 05:38 | XMS_ITS | Clinical Summary ---
Author Organization [facility] C Address [address] [facility] [place] [address] Care Team Providers Care Immigration Guard Name Role Phone Hailey Maravilla MD, Denver Cedeno Primary Care Provide r Mynor Chauhan MD Unavailable [phone] Allergies No known active allergies Medications No known medications Active Problems Problem Noted Date Diagnosed Date Preventative health care 07/11/2023 Assessment & Plan (07/11/2023 9:07 AM PNEUMATIC TOOL OPERATOR): Reviewed labs, screenings and vaccines Class 2 obesity due to exces s calories without serious comorbidity with body mass index (BMI) of 35.0 to 35.9 in adult 07/11/2023 Assessment & Plan (07/11/2023 9:07 AM PNEUMATIC TOOL OPERATOR): Monitor weight Varicose veins of left lower [...] Most Recently Relevant to Health Maintenance Insurance [employer] OPEN ACCESS Care Teams Immigration Guard Relationship Specialty Start Date End Date Denevr aHrt Jr., MD [address] [place] [id number] PCP - General Internal Medicine 07/11/23 Mynor Chauhan MD [address] [place] [address] Obstetrics and Gynecology 07/11/23
--- OUTSIDE RECORDS SUMMARY | 2024-07-23 05:38 | XMS_ITS | Encounter Summary ---
Author Organization [facility] Healthcare Address [address] [place] [address] Care Team Providers Care Drawer Maker Name Role Phone Hailey Maravilla MD, Denver Cedeno Primary Care Provide r Mynor Chauhan MD Unavailable [phone] Encounter Details Date Type Department Care Team (Late st Contact Info) Description 09/12/2023 E-Visit [facility] Medical Group Primary Care [address] [address] Denver Hart Jr., MD [facility] [address] Semaglutide Social History Tobacco Use [...] on filedocumented in this encounter Care Teams Drawer Maker Relationship Specialty Start Date End Date Denver Hart Jr., MD [address] [place] [phone] PCP - General Internal Medicine 07/11/23 Mynor Chauhan MD [address] [place] [address] Obstetrics and Gynecology 07/11/23 documented as of this encounter
--- OUTSIDE RECORDS SUMMARY | 2024-07-23 05:38 | XMS_ITS | Referral Summary ---
Author Organization [facility] C Address [address] [place] [address] Care Team Providers Care Cable Systems Installer Name Role Phone Hailey Maravilla MD, Denver Cedeno Primary Care Provide r Mynor Chauhan MD Unavailable [phone] Allergies No known active allergies Medications No known medications Active Problems Problem Noted Date Diagnosed Date Preventative health care 07/11/2023 Assessment & Plan (07/11/2023 9:07 AM UNIT CLERK): Reviewed labs, screenings and vaccines Class 2 obesity due to exces s calories without serious comorbidity with body mass index (BMI) of 35.0 to 35.9 in adult 07/11/2023 Assessment & Plan (07/11/2023 9:07 AM UNIT CLERK): Monitor weight Varicose veins of left lower [...] Maintenance Insurance [employer] OPEN ACCESS Care Teams Cable Systems Installer Relationship Specialty Start Date End Date Denver Hart Jr., MD [address] [place] [id number] PCP - General Internal Medicine 07/11/23 Mynor Chauhan MD [address] [place] [address] Obstetrics and Gynecology 07/11/23
--- OUTSIDE RECORDS SUMMARY | 2024-07-23 05:38 | XMS_ITS | Clinical Summary ---
Author Organization [facility] Address [address] [place] [address] Care Team Providers Care Vineyardist Name Role Phone Unavailable Primary Care Provider Unavailabl e Immunizations Name Administration Dates Next Due MODERNA COVID-19 (12+) MRNA, LNP-S, PF, 100 MCG/ 0.5 ML DOSE 06/29/2020,06/01/2020 Social History Tobacco Use Types Packs/Day Years Used Date Smoking Tobacco: Never Assessed Comments Unknown Sex and Gender Information Value Date Recorded Sex Assigned at Not on file Legal Sex Female 12:52 PM FINGERER Gender Identity Not on file Sexual Orientation [...] patient's age to complete this topic Insurance [facility]
[2024-07-23] MEDS: ACETAMINOPHEN 500 MG TABLET 1000 MG PO (06:50)
[2024-07-23] MEDS: LACTATED RINGERS 2,000 ML 999 ML (06:53)
--- NOTE | 2024-07-23 07:00 | LDADM ---
This patient, Candie Liz, was admitted to Labor/Delivery/Recovery 120 on 07/23/24 at 05:30. Plans for repeat section were discussed with patient. Patient/family oriented to hospital policies and general routines including ID bracelet, bed and alarms, visiting hours, pain management, procedures, bathroom and other care routines, personal items, smoking policy, room service/diet and guest tray routines, infant security routines, and visiting hours. Patient/Family are encouraged to report perceived risks to care and to ask questions if they do not understand what they are told or what they should do. See OBIX for further documentation.
[2024-07-23] MEDS: FAMOTIDINE 20 MG/2 ML VIAL IV PUSH (07:17)
[2024-07-23] MEDS: ONDANSETRON INJ 4 MG/2 ML VIAL IV PUSH ×2 (07:17→18:15)
--- NOTE | 2024-07-23 07:23 | PM.IMHP ---
H&P: HPI History of Present Illness Date/Time: 07/23/24 07:23 Chief Complaint: Term Narrative: This patient is a 33-year-old multiparous female with previous . She is term, 39 weeks, who agreed to proceed with repeat delivery. The patient understands the details of the procedure. The procedure has been explained in detail. She understands the risks. She understands that injuries may occur that result in hospitalization, more surgery, and severe illness. She understands risk of hemorrhage and infection. She denies any chest pain or shortness of breath. She denies any nausea, vomiting, fever, chills. Review of Systems Review of Systems: All systems reviewed & are unremarkable except as noted in HPI and below Constitutional: Constitutional: Denies chills, Denies fatigue, Denies fever(s) and Denies weakness Eyes: Eyes: Denies blurry vision, Denies change in vision, Denies loss of peripheral vision, Denies loss of vision, Denies other visual disturbances and Denies eye pain ENT: Denies vertigo, Denies dizziness, Denies hearing loss, Denies mouth pain, Denies nasal obstruction, Denies neck mass and Denies neck pain Cardiovascular: Cardiovascular: Denies chest pain, Denies diaphoresis, Denies syncope, Denies leg edema and Denies dyspnea Respiratory: Respiratory: Denies chest congestion, Denies cough, Denies hemoptysis, Denies dyspnea and Denies wheezing Gastrointestinal: Gastrointestinal: Denies abdominal pain, Denies constipation, Denies diarrhea, Denies nausea and Denies vomiting Genitourinary: Genitourinary: Denies hematuria, Denies change in libido, Denies nocturia, Denies genital lesions, Denies flank pain and Denies urinary urgency Musculoskeletal: Musculoskeletal: Denies abnormal gait, Denies back pain, Denies myalgias, Denies arthralgias, Denies joint swelling, Denies muscle weakness and Denies neck pain Integumentary/Breasts: Skin/Breast: Denies swelling, Denies breast pain, Denies breast mass, Denies dry skin, Denies nipple discharge, Denies unusual bruising and Denies jaundice Neurologic: Denies Neuro-related abnormal movements, Denies Abnormal speech present, Denies abnormal gait, Denies behavioral changes, Denies confusion, Denies vertigo, Denies dizziness, Denies syncope, Denies loss of vision, Denies memory loss, Denies convulsions and Denies weakness Psychiatric: Psychiatric: Denies abnormal sleep pattern, Denies behavioral changes, Denies change in libido, Denies confusion, Denies depression, Denies anhedonia and Denies memory loss Endocrine: Endocrine: Reports no additional endocrine complaints, Denies change in libido and Denies fatigue Hematologic/Lymphatic: Hematologic/Lymphatic: Reports no additional hematologic/lymphatic complaints Allergic/Immunologic: Allergic/Immunologic: Reports no additional allergic/immunologic complaints and Denies wheezing PMFSH Past Medical History Medical History Anemia Foot fracture, right Surgical History Surgical History H/O: Family History Family History Grandparent Heart disease Diabetes mellitus Hypertension Depression Mother Melanoma Hypertension Father Hypertension Alcoholism Depression Heart disease Social History Social History (Updated 05/02/23 @ 08:40 by Marisol Espinosa CMA) Smoking status: Never smoker Alcohol intake: current Substance use: never Substance use type: does not use Do You Feel Safe in your Home?: Yes Lack of Transportation: No Lack of Food: Never True Current Housing: I Have Housing Concerned About Future Housing: No Difficulty Paying Gas/Electric Bills: No Difficulty Paying for Meds: No Currently Unemployed: No Education: Associate Degree Difficulty w/ Childcare or Family Care: No Spiritual care concerns: No Meds Home Medications and Allergies Home Medications ?Medication ?Instructions ?Recorded ?Confirmed ?Type nitrofurantoin 100 mg PO Q12H 7 days #14 caps 07/14/24 07/23/24 Rx monohydrate/macrocrystals 100 mg capsule (Macrobid) Allergies Allergy/AdvReac Type Severity Reaction Status Date / Time No Known Allergies Allergy Verified 07/03/24 14:45 Vital Signs Vital Signs - 24 hr 07/23/24 06:10 07/23/24 06:11 07/23/24 06:15 Pulse Rate 117 H Blood Pressure 140/96 H Pulse Oximetry 98 99 Oxygen Delivery 07/23/24 06:29 07/23/24 06:31 07/23/24 06:34 Pulse Rate 95 Blood Pressure 141/86 H Pulse Oximetry 97 99 Oxygen Delivery 07/23/24 06:39 07/23/24 06:58 Pulse Rate Blood Pressure Pulse Oximetry 99 Oxygen Delivery Room Air Exam Const: General: cooperative, healthy appearing, comfortable and no acute distress Orientation/consciousness: oriented to person, oriented to place and oriented to time HENMT: Head: normal to inspection Ears: external ears normal Face/Nose/Sinus: Normal external nose present and normal facial exam Face and sinus: normal facial exam Eyes: General: appearance normal, both eyes and all related structures Neck: Neck: normal visual inspection, trachea midline and supple Resp: Auscultation: clear to auscultation bilaterally, no crackles, no rales, no rhonchi and no wheezes Cardio: Rate: regular rate Rhythm: regular rhythm Heart sounds: no click, no murmurs and no rubs GI: GI Palp: No abdominal tenderness, No Soft to palpation, No Tenderness to palpation present (GI) and No Palpable mass present Auscultation: normal bowel sounds Skin: General skin exam: normal color and no rashes or lesions noted Neuro: General: oriented to person, oriented to place and oriented to time Extrem: General: normal to inspection, no joint enlargement, no clubbing, cyanosis or edema, no pedal edema and no calf tenderness Psych: Appearance: grossly normal Mental Status: mental status grossly normal Speech and movement: Normal speech and movement present Assessment and Plan Assessment and plan (1) Term : Code(s): Z34.90 - Encounter for supervision of normal , unspecified, unspecified trimester Status: Acute (2) delivery delivered: Code(s): O82 - Encounter for delivery without indication Status: Acute Plan This patient is a 33-year-old multiparous female with previous . She is term, 39 weeks, who agreed to proceed with repeat delivery. She understands risks, benefits, and alternatives. She has completed the informed consent process is ready to proceed.
--- NOTE | 2024-07-23 07:25 | WPDHPUPDATE1 ---
History and Physical Update Update Date/Time: 07/23/24 07:25 History and Physical has been reviewed, including an updated exam of the patient. There are NO changes in the patient's condition. Risks, benefits, and alternatives have been discussed and questions answered. Patient agrees to proceed with procedure.
[2024-07-23] MEDS: ceFAZolin 2 GM/D5W 50 ML 2 GM/50 ML BAG IVPB (07:43)
--- NOTE | 2024-07-23 08:58 | W.PM.OBCSD ---
OB - Delivery Note Procedure Delivery date: 07/23/24 Pre-op diagnosis: Previous Delivery Post-op Diagnosis: Same Procedure Performed: Repeat Surgeon: Jesse Galvez MD Anesthesia type: Spinal Description of Procedure/Findings: The patient was taken the operating room.? She was prepped and draped in dorsal supine position with a leftward tilt.? This was done after spinal anesthetic was applied.? A low-transverse skin incision was made and carried down till of the fascia with the knife.? The fascial incision was made with the knife.? The fascial incision was extended laterally with Muir scissors.? The fascia was tented upward superiorly and inferiorly the rectus muscles were dissected off bluntly.? The rectus muscles were the midline.? The preperitoneal fat and peritoneum were dissected open bluntly at the superior aspect of the rectus muscles.? The peritoneal incision was extended superior and inferior with good position of bladder.? The uterine incision was made with a scalpel down to the level of the amniotic cavity.? The amniotic cavity was entered bluntly.? The infant was delivered.? The cord was clamped and cut and the infant was handed off to waiting pediatric staff.? Cord bloods were obtained.? The placenta was removed manually.? The uterus was exteriorized.? The uterus was cleared of all clots, debris and membranes.? The uterus was closed in 0 Vicryl running lock fashion.? An imbricating over a was placed along the incision line as well.? The uterus was returned to the abdomen.? The gutters were cleared of all clots and debris.? The fascia was closed with 0 Vicryl running fashion.? The subcutaneous tissue was irrigated pinpoint bleeders were cauterized.? The skin was closed with subcuticular absorbable avinash.? The skin incision line was covered with glue.? The patient tolerated the procedure well.? She has taken recovery room in stable condition.? Sponge lap and needle counts were correct x2.?
[2024-07-23] MEDS: LIDOCAINE 5% PATCH 1 PATCH TRANSDERM (09:58)
[2024-07-23] MEDS: OXYTOCIN 30 UNITS/NS 500 ML 30 UNITS/500 ML BAG 125 UNITS IV CONT (10:35)
[2024-07-23] MEDS: MORPHINE SULFATE INJ (*CRX) 10 MG/ML AMP 2 MG IV PUSH (10:40)
[2024-07-23] MEDS: guaiFENesin 12 HR 600 MG TABCR PO ×2 (10:58→21:40)
--- NOTE | 2024-07-23 11:30 | OBPPTRN ---
Patient transferred to post room # 282 via stretcher. Support person present. Oriented to unit, room, information board, rooming in, admission packet and security measures. Patient verbalizes understanding.
[2024-07-23] MEDS: METOCLOPRAMIDE HCL INJ 10 MG/2 ML VIAL IV PUSH (12:08)
[2024-07-23] MEDS: HYDROcodone/acetaminophen (*CRX) 10-325 MG TABLET 1 TAB PO (12:09)
[2024-07-23] MEDS: SIMETHICONE 80 MG TAB.CHEW PO ×2 (12:09→16:00)
[2024-07-23] MEDS: ACETAMINOPHEN 325 MG TABLET 650 MG PO ×2 (12:43→19:02)
[2024-07-23] MEDS: KETOROLAC 15 MG/ML VIAL (*BKC) IV PUSH ×2 (12:44→19:04)
[2024-07-23] MEDS: DEXTROSE 5%/0.45% SOD CHL 1,000 ML 125 ML IV CONT (15:18)
[2024-07-23] MEDS: MULTIVIT/MIN/PREN/FOL AC/IRON TABLET 1 TAB PO (16:00)
[2024-07-23] MEDS: DOCUSATE SODIUM 100 MG CAPSULE PO (16:00)
[2024-07-23] MEDS: HYDROcodone/acetaminophen (*CRX) 5-325 MG TABLET 1 TAB PO ×2 (16:39→21:39)
[2024-07-23] MEDS: NITROFURANTOIN MONOHYD MACROCR 100 MG CAP PO (19:03)
[2024-07-23] MEDS: KCL 20 MEQ/D5/0.45% SOD CHL 1,000 ML 125 ML IV CONT (23:00)
[2024-07-24 00:14] VITALS: BP 112/78; PULSE 82; RESP 16; TEMP 36.7; O2SAT 99
[2024-07-24] MEDS: ACETAMINOPHEN 325 MG TABLET 650 MG PO ×3 (00:44→12:30)
[2024-07-24] MEDS: KETOROLAC 15 MG/ML VIAL (*BKC) IV PUSH ×2 (00:44→06:41)
[2024-07-24 04:00] VITALS: BP 120/86; PULSE 81; RESP 16; TEMP 36.4; O2SAT 99
[2024-07-24 06:37] LABS: Basophils Percent Auto 0.2 % (0.2-1.2); Eosinophils Absolute Auto 0.1 K/mm3 (0-0.3); Eosinophils Percent Auto 0.5 % (0-4.4); Hematocrit 29.6 % (37.0-47.0); Hemoglobin 9.2 g/dL (12.0-15.0); Immature Granulocyte Absolute 0.04 K/mm3 (0.00-0.031); Immature Granulocyte Percent A 0.4 % (0-0.5); Mean Corpuscular HGB Conc 31.1 g/dl (32-36); Mean Corpuscular Hemoglobin 26.7 pg (26-34); Mean Corpuscular Volume 85.8 fl (80-100); Mean Platelet Volume 10.7 fl (7.4-10.4); Monocytes Absolute Auto 0.5 K/mm3 (0.1-0.6); Monocytes Percent Auto 4.6 % (2.6-8.5); Neutrophils Absolute Auto 7.9 K/mm3 (1.3-6.7); Neutrophils Percent Auto 79.3 % (45.5-73.1); Platelet Count Result 234 k/mm3 (150-375); Red Blood Count 3.45 M/mm3 (4.2-5.4); Red Cell Distribution Width 13.2 % (11.5-14.5)
[2024-07-24] MEDS: SIMETHICONE 80 MG TAB.CHEW PO ×3 (06:42→17:13)
[2024-07-24 07:25] VITALS: BP 119/83; PULSE 91; RESP 16; TEMP 36.4; O2SAT 98
--- NOTE | 2024-07-24 07:25 | PC.NURSE ---
Pt states her last day for taking her home med, Macrobid, was yesterday. She desires to not continue taking it. RN d/c'd order.
--- NOTE | 2024-07-24 08:10 | PM.OBPNVD ---
OB - PN: Subj Subjective Date/time seen: 07/24/24 08:10 Interval history: post op day 1 baby transferred pain now well managed passing flatus OB - PN: Obj Data Labs 07/24/24 04:25 Labs: Laboratory Results - last 24 hr 07/24/24 04:25 WBC 10.0 RBC 3.45 L Hgb 9.2 L Hct 29.6 L MCV 85.8 MCH 26.7 MCHC 31.1 L RDW 13.2 Plt Count 234 MPV 10.7 H Immature Gran % (Auto) 0.4 Neut % (Auto) 79.3 H Lymph % (Auto) 15.0 L [place] % (Auto) 4.6 Eos % (Auto) 0.5 Baso % (Auto) 0.2 Lymph # (Auto) 1.50 [place] # (Auto) 0.5 Eos # (Auto) 0.1 Baso # (Auto) 0.0 Abs Immat Gran (auto) 0.04 H Absolute Neuts (auto) 7.9 H Absolute Nucleated RBC 0.000 Nucleated RBC % 0.0 OB - PN A/P Plan day: 1 Plan: routine care Time Spent With Patient Time: Total time spent is greater than 50% in coordination of care (as documented) at patient's floor/unit and/or counseling patient: Review of Systems Review of Systems: All systems reviewed & are unremarkable except as noted in HPI and below Exam Const: General: cooperative and healthy appearing Chest: Chest palpation & inspection: normal inspection of the chest Resp: Effort & Inspection: normal respiratory effort Cardio: Rate: regular rate GI: Other: incision CDI
[2024-07-24] MEDS: MULTIVIT/MIN/PREN/FOL AC/IRON TABLET 1 TAB PO (08:40)
[2024-07-24] MEDS: POLYSACCHARIDE IRON COMPLEX 150 MG CAPSULE PO ×2 (08:40→17:13)
[2024-07-24] MEDS: HYDROcodone/acetaminophen (*CRX) 5-325 MG TABLET 1 TAB PO ×4 (08:41→21:13)
[2024-07-24] MEDS: guaiFENesin 12 HR 600 MG TABCR PO ×2 (08:42→21:13)
[2024-07-24] MEDS: DOCUSATE SODIUM 100 MG CAPSULE PO ×2 (08:42→17:13)
[2024-07-24] MEDS: LIDOCAINE 5% PATCH 1 PATCH TRANSDERM (09:29)
--- NOTE | 2024-07-24 10:47 | WPDANLDPN2 ---
Anes-Prog Note L&D Date/Time: 07/24/24 10:47 Comfortable throughout: section Neuraxial method: spinal Epidural/Spinal procedure site: clean & non-tender Neuro status: Neuro function grossly intact. Cardiovascular status: normal Respiratory status: normal Airway patency: baseline Mental status: baseline Post-Op hydration status: normal Vital Signs: Last Vital Signs Temp 36.4 C 07/24/24 07:25 Pulse 91 07/24/24 07:25 Resp 16 07/24/24 07:25 BP 119/83 07/24/24 07:25 Pulse Ox 98 07/24/24 07:25 O2 Del Method Room Air 07/23/24 19:38 Pain score (VAS): 1/10, 9/10 Pain immediate post op period requiring IV Morphine, lasted about 4 hours, now Pain is 1/10 I/O: Intake & Output 07/23/24 07/24/24 07/24/24 23:59 07:59 15:59 Intake Total 200 400 240 Output Total 400 1700 300 Balance -200 -1300 -60 Post-procedural complaints: none Patient feedback: Patient satisfied with anesthetic care.
--- NOTE | 2024-07-24 10:49 | WPDANLDNPN2 ---
Anes-Prog Note L&D-Neuraxial Date/Time: 07/24/24 10:49 Neuraxial medications: intrathecal PF morphine Opiod-related complaints: none Patient feedback: Patient satisfied with post-operative pain management.
[2024-07-24] MEDS: IBUPROFEN 600 MG TABLET PO ×2 (12:30→18:42)
[2024-07-24 12:40] VITALS: BP 122/80; PULSE 96; RESP 16; TEMP 37.1; O2SAT 98
--- NOTE | 2024-07-24 15:47 | PC.NURSE ---
1500. Assisted mom with setting up her mom Cass breast pump. Instructions given on cleaning, care, usage, that there should be no pain, pumping schedule for milk production, collection, and storage of human milk. Patient was assessed for correct placement, flange size, to pump for comfort and nipple stretching/stimulation for adequate milk production every 3 hours (8 times in 24 hours) 1-2 times at night. Parents are encouraged to record the pumping schedule on the feeding sheet.?Mother voiced understanding of the education shared along with mom/baby guide and the pump measurement, flange fit handout for additional resource information. Reported to the Primary RN.
[2024-07-24 19:05] VITALS: BP 130/84; PULSE 90; RESP 18; TEMP 36.7; O2SAT 98
[2024-07-25] MEDS: ACETAMINOPHEN 325 MG TABLET 650 MG PO ×2 (00:43→06:47)
[2024-07-25] MEDS: IBUPROFEN 600 MG TABLET PO ×2 (00:43→06:47)
[2024-07-25] MEDS: HYDROcodone/acetaminophen (*CRX) 5-325 MG TABLET 1 TAB PO ×2 (03:31→09:33)
[2024-07-25 07:03] VITALS: BP 130/95; PULSE 86; RESP 18; TEMP 36.6; O2SAT 100
--- NOTE | 2024-07-25 08:18 | P.PNOB_ITS ---
OB - PN: Subj Subjective Date/time seen: 07/25/24 08:18 Interval history: post op day 1 baby transferred pain now well managed passing flatus Patient comments: no complaints, pain well controlled, incisional pain, tolerating diet and flatus present OB - PN: Obj Data Labs 07/24/24 04:25 OB - PN A/P Plan day: 3 Plan: routine care, discharge home and other Comments: Incision check in one week. Given precautions Time Spent With Patient Time: Total time spent is greater than 50% in coordination of care (as documented) at patient's floor/unit and/or counseling patient: Exam 2 Const: General: comfortable, no acute distress and alert Resp: Effort & Inspection: normal respiratory effort Auscultation: no crackles, no rales and no rhonchi Cardio: Rate: regular rate Heart sounds: no click, no murmurs and no rubs GI: Inspection: non-distended GI Palp: No Tenderness to palpation present (GI) Auscultation: normal bowel sounds Other: Incision - CDI Extrem: General: normal to inspection, no pedal edema and no calf tenderness
--- NOTE | 2024-07-25 08:19 | P.DS_ITS ---
DS: Admitting Diagnosis Discharge Date July 25, 2024 Admitting Diagnosis Term , previous DS: Discharge Diagnosis Discharge Diagnosis (1) delivery delivered: Code(s): O82 - Encounter for delivery without indication Status: Acute OB - DS: Summary OB Procedures : None OB Procedures Intrapartum: OB Procedures: : None Peripartum Data Procedures: Procedures Operation Date: 07/23/24 07:30 Actual Procedure Side Surgeon p Repeat Section Jesse Galvez MD Time Spent with Patient Time attestation: Total time spent providing and/or coordinating discharge services: Discharge Plan Discharge Discharging Clinician: Jesse Galvez Patient Disposition: Home, Self-Care Activity: pelvic rest Diet: regular Wound Care Instructions: keep dressing dry Discharge Instructions: Pumping Plan? You are exclusively pumping at discharge. It is important to pump regularly and consistently to help maintain your milk supply. Regular milk removal is necessary for continued milk production. You need to pump at least 8 times every 24 hours. You can use hands on pumping to get better results with pumping and to encourage your breasts to produce more milk. Hands on pumping instructions:? * Massage your breasts before applying the breast pump.? * Pump both breasts at once. Use your hands to massage and compress while you pump.? * Stop pumping when the milk stops flowing? * Massage your breasts again? * End the pumping session by pumping or hand expressing one breast at a time while massaging and compressing your breast. Go back and forth between each breast until the milk stops flowing.? * Allow 25 minutes to complete this routine??? It is important to be sure you have a well-fitted pump flange. Consult your pump manual for recommended flange sizing or consult a professional.?? YOU SHOULD SET YOUR PUMP TO THE HIGHEST COMFORTABLE LEVEL. INCREASE THE SUCTION GRADUALLY UNTIL YOU REACH THE CORRECT SETTING. PUMPING SHOULD NOT HURT.? ? CONSULT YOUR PUMP MANUAL FOR GUIDANCE ON PUMP SETTINGS AND FUNTIONS. MOST PUMPS RECOMMEND 1-2 MINUTES OF THE QUICK ?MASSAGE? MODE, THEN SWITCHING TO THE SLOWER ?EXPRESSION? MODE FOR THE REMAINDER OF THE PUMPING SESSION.?? ? Pump each breast for 10-15 minutes. Pumping will help stimulate your breasts to produce milk.? Follow the collection and storage sheet given to you in the Mom and Baby Guide. Remember to keep track of all feedings/elimination on the blue worksheet provided.? ? Clean your pump parts between each pumping session according to the guidelines in your pump manual. It is recommended that you use a basin that is reserved for washing pump parts that is separate from your sink to prevent contamination. If you are pumping for an ill or , you should disinfect your pump parts once a day by boiling them in hot water for 5 minutes after cleaning.? ? Ways to increase your milk supply:? * Increase frequency of pumping (10-12 times every 24 hours)? * Lots of skin to skin (if is able), especially before pumping? * Use warm washcloths before pumping and gentle breast massage before and during pumping? * Reduce stress, relax with music, get plenty of rest, and drink to thirst? * Warm pump flanges with warm water before pumping? * Pump until the milk stops flowing, then pump for 2 more minutes to fully empty the breast? * Pump at least once through the night, milk shouldn?t remain in the breast for longer than 4 hours? * Power pumping: Pump for 15-20 minutes, rest for 10 minutes, pump for 10, rest for 10, pump for 10. Do this routine 1-2 times a day for several days or until you notice an increase in milk supply. Pump normally between power pumping sessions.? ? You may contact the Team at [phone] for questions and appointments.? These discharge instructions have been explained to me and I have received a copy.? Patient Instructions: Antibiotic Form Patient Language: [place] Stand Alone Forms: General Discharge Information Follow-up/Referrals: Jesse Galvez MD [Physician] - Discharge Medications: New hydrocodone-acetaminophen 5-325 mg tablet 1 - 2 tablet PO Q6H PRN (Reason: pain) Qty: 25 0RF Continued nitrofurantoin monohyd/m-cryst [Macrobid] 100 mg capsule 100 mg PO Q12H 7 Days Qty: 14 0RF Rx Instructions: must administer with a meal/food Date of admission: 07/23/24 05:30 Primary Care Provider: Hailey,Denver Cedeno Jr. Admitting Provider: Jesse Galvez Attending physician on admission: Jesse Galvez Condition: Stable
--- NOTE | 2024-07-25 09:05 | PC.NURSE ---
Consulted with mother concerning needs and she shared her ability to independently pump without pain. Mother is pumping regularly but is discouraged about how much she is producing so far. Encouraged consistency and patience. Mom plans to pump and bottle feed exclusively. is in the NICU currently. Reinforced understanding of milk production, transition of milk, prevention/relief of engorgement, plugged ducts, mastitis, community resources, and when to call a provider using the resource of the feeding sheet along with the mom and baby guide. She has a [employer] breast pump and declines a WIC referral. Mother voiced understanding of the information shared, is confident to continue effectively her infant at home, when to call for assistance, denies any additional assistance or education at this time. Reported to the Primary RN.
[2024-07-25] MEDS: POLYSACCHARIDE IRON COMPLEX 150 MG CAPSULE PO (09:32)
[2024-07-25] MEDS: guaiFENesin 12 HR 600 MG TABCR PO (09:32)
[2024-07-25] MEDS: DOCUSATE SODIUM 100 MG CAPSULE PO (09:32)
[2024-07-25] MEDS: MULTIVIT/MIN/PREN/FOL AC/IRON TABLET 1 TAB PO (09:32)
[2024-07-25] MEDS: SIMETHICONE 80 MG TAB.CHEW PO (09:35)
[2024-07-27 09:59] VITALS: BP 138/85; PULSE 88; RESP 18; TEMP 37.2; O2SAT 100
== END 2024-07-25 12:12 | disposition home or self-care (01) | DRG 788 ==
LOC: ANHLDR 05:36 → ANHOB2 11:32
PROVIDERS: Admitting Provider Obstetrics & Gynecology; PCP Hospitalist; Visit Provider Obstetrics & Gynecology
PROC: 10D00Z1 Extraction of Products of Conception, Low, Open Approach (ICD-10-PCS; CPT 59514; principal; 2024-07-23 07:30)
DX: O34.211 Maternal care for low transverse scar from previous cesarean delivery (principal); Z37.0 Single live birth; Z3A.37 37 weeks gestation of pregnancy; O13.4 Gestational [pregnancy-induced] hypertension without significant proteinuria, complicating childbirth; O99.824 Streptococcus B carrier state complicating childbirth
CPT/HCPCS: 36415; 85025; A9270; J0690; J1885; J2270; J2274; J2371; J2405; J2590; J2765; J3480; J7120